=== PATIENT | male | born 1955 | race Caucasian/White ===

== ENCOUNTER 2024-02-24 08:48 | Outpatient (REF) | payer MEDICARE, SELFPAY ==
--- NOTE | ~2024-02-24 | XR_ITS ---
EXAMINATION: XR LUMBOSACRAL SPINE WITH OBLIQUES CLINICAL INFORMATION: Spondylolisthesis lumbar region. COMPARISON: None available. TECHNIQUE: AP, lateral neutral, flexion and extension views of the lumbar spine. FINDINGS: Levoscoliosis of the lumbar spine. Degenerative changes with sclerosis in the bilateral sacroiliac joints. Bones are diffusely demineralized. Advanced multilevel lumbar spondylosis with moderate to marked loss of disc space height most notable at L2-L3 and L4-L5 and L5-S1. Grade 1 anterolisthesis of L4 on L5 persists on flexion and extension views. Straightening of the normal lumbar lordosis. Minimal grade 1 retrolisthesis of L2 on L3. XR/XR lumbar spine 4V min IMPRESSION: Advanced multilevel lumbar spondylosis.
== END 2024-02-24 08:49 | disposition home or self-care (01) ==
LOC: HO.HOSX 08:48
PROVIDERS: PCP Nurse Practitioner Family; Visit Provider Physician Assistant
DX: M43.16 Spondylolisthesis, lumbar region (principal)
CPT/HCPCS: 72110; 99202

== ENCOUNTER 2024-02-24 08:48 | Outpatient (AMB) | payer MEDICARE, SELFPAY ==
--- NOTE | 2024-02-24 09:01 | HO.SPINEOV ---
Intake Visit Reasons: LBP Intake Note: Mr. Flores is here today c/o low back pain. 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 He is a very nice 68-year-old gentleman who presents to the office today for evaluation of bilateral low back pain, radiating down into his anterior thigh stopping at his knees. The symptoms started a few years ago, maybe 2 or 3 years. It has been getting progressively worse. It is associated with standing and walking and goes away if he sits down. He initially started with activity modifications such as avoiding long walks or places where we knew he would have to stand. He started using a shopping cart in the grocery store etc.. It progressed to where he went underwent physical therapy thinking maybe he can just tried to work it out, ultimately went underwent months of treatment and improve his flexibility but otherwise the symptoms does not go away. He tried Tylenol, anti-inflammatories, Celebrex etc.. Nothing seems to work. An MRI was done at [facility] in July of 2023 showing severe arthritis the lumbar spine with stenosis, spondylolisthesis and he was sent to us for evaluation prior to considering injections. PMH: He has a history of CAD and has stent in 2019, he is followed by at [facility]. He tells me he gets yearly checkups and he has been otherwise fine. History of hypertension. He has seasonal allergies. He has high cholesterol. Denies any problems with his lungs, liver, kidneys, bleeding disorders, blood clots, cancer etc.. Social hx: He does not smoke, he drinks a beer 2 a day, no recreational drugs Medications: Metoprolol, atorvastatin, Effexor, baby aspirin and nifedipine Allergies: None Physical exam: He stands and walks with a flexed posture, he has some mild iliopsoas weakness but otherwise strength in the upper and lower extremities is full. Reflexes 3+ and symmetric throughout the upper and lower extremities. Imaging review: Lumbar MRI done at [facility] in July 2023 shows severe arthritis throughout the whole lumbar spine. It should be noted that he has transitional anatomy. We are considering the level with the spondylolisthesis the L4-5 level. He has grade 1 spondylolisthesis at L4-5 with bilateral neuroforaminal stenosis which we would rate as severe. He has moderate stenosis at L2-3. Standing flexion-extension x-rays show that it looks as though he has what appears to be a pars defect at L4, likely contributing to his spondylolisthesis. He has severe osteophyte overgrowth at L2-3 laterally on the right. Impression: 68-year-old gentleman presents to the office today for progressive history of bilateral low back pain radiating into his anterior thigh stopping at his knees. It seems most consistent with the L4 dermatome where we see a grade 1 spondylolisthesis/pars defect with narrowing in the foramen.. However, there can be some overlap with the L2-3 dermatome as well where he has moderate central canal stenosis. Dr. Fritz and I reviewed his films together in the office today. Although he has extensive degenerative changes, we think the L4-5 spondylolisthesis is likely generating most of his symptoms. We discussed the option of an L4-5 trans Kambin interbody fusion. We left the option open that he may need a secondary follow-up surgery at L2-3 with a simple decompression as well but this can be dealt with later after surgery if he does not have good resolution of his leg symptoms. He will need a preoperative cardiac clearance and be off his aspirin 1 week prior to surgery. Pt was given risk and benefits of surgery including but not limited to infection, hematoma , nerve injury,durotomy, weakness,bowel/bladder injury, persistent pain, need for subsequent decompression at L2-3 as well as the option to continue with conservative treatment and patient wishes to proceed with surgery. Pt is aware they should stop their motrin, aspirin 7 days prior to surgery. All questions were answered to the best of our ability. If there is anything about this patients medical history that we have overlooked or concerns you have about us proceeding with surgery we would appreciate any input you can offer. Thank you for allowing us to care for your patient. The total time spent with this visit with this patient was 45 minutes reviewing history, physical exam, lumbar imaging review, and implementation of treatment plan or further diagnostic testing Judson Fritz MD,PhD [facility] Orders: Orders XR lumbar spine 4V min Today M43.16 - Spondylolisthesis, lumbar region Coding Level of Care Code New Pt Level 4 (67654) Diagnoses Spondylolisthesis, lumbar region M43.16
== END 2024-02-24 09:54 | disposition home or self-care (01) ==
PROVIDERS: PCP Nurse Practitioner Family; Referring Provider Physical Medicine & Rehabilitation; Visit Provider Physician Assistant
DX: M43.16 Spondylolisthesis, lumbar region (principal)
CPT/HCPCS: 99204

== ENCOUNTER 2024-05-08 09:06 | Inpatient (IN) | payer MEDICARE, SELFPAY ==
[2024-04-25 11:55] VITALS: BP 157/80; PULSE 87; RESP 16; O2SAT 97; BMI 31.2
--- NOTE | 2024-04-25 12:24 | HO.ANESPROP2 ---
Documented by User: Sana Chand NP 05/07/24 09:11 HPI - Anesthesia Eval Consult details Narrative: 68yo M for L4-5 Transkambin Lumbar Interbody Fusion, 05/08/24 Cardiac optimized No recent illness, Seasonal allergy (zyrtec) No CP/SOB, mild LONG r/t back pain CAD s/p stent x 2018 GERD: prn Tums Anxious PMFSH Active Problems Active Problems: All Active Problems Spondylolisthesis, lumbar region (Acute) Past Medical History Medical History Environmental allergies Hx of sinusitis Allergic rhinitis GERD (gastroesophageal reflux disease) Atypical chest pain CAD (coronary artery disease) History of panic attacks Depression Anxiety Low back pain Seasonal allergies Elevated cholesterol HTN (hypertension) Family History Family history of problems with anesthesia: No Surgical History Surgical History Hx of colonoscopy H/O heart artery stent (~02/2019) History of Problems with Anesthesia: No Social History Social History Household Members: None Housing: Apartment Are you a primary healthcare administration internship to a significant other at home: No Do you presently have visiting nurse or other home services: No Patient Tobacco Use Status: Never used Tobacco Use of substances other than those prescribed or required for medical reasons: No Have you been hit, kicked, punched, or otherwise hurt by someone within the past year? If so, by whom?: No Are you DNR?: No Advance Directives: No Advance Directives on File: No Recently lost weight without trying: No Nutrition Risks: No Nutritional Risk Poor oral hygiene: No Meds Allergies Allergy/AdvReac Type Severity Reaction Status Date / Time No Known Allergies Allergy Verified 04/24/24 12:10 Home Medications ?Medication ?Instructions ?Recorded ?Confirmed ?Last Taken ?Type aspirin 81 mg chewable tablet 81 mg PO DAILY 04/24/24 04/24/24 05/04/24 History atorvastatin 80 mg tablet 80 mg PO DAILY 04/24/24 04/24/24 05/07/24 History cetirizine 10 mg capsule (Zyrtec) 10 mg PO DAILY PRN Allergy Symptoms 04/24/24 04/24/24 05/08/24 History fluticasone propionate 50 1 spray intranasal DAILY PRN 04/24/24 04/24/24 05/08/24 History mcg/actuation nasal Allergy Symptoms spray,suspension (Flonase Allergy Relief) lisinopril 20 mg tablet 20 mg PO DAILY 04/24/24 04/24/24 05/07/24 History metoprolol succinate 50 mg 100 mg PO DAILY 04/24/24 04/24/24 05/08/24 History tablet,extended release 24 hr omega 1-hnt-ztc-fish oil 1,200 mg 1 cap PO DAILY 04/24/24 04/24/24 05/04/24 History (144 mg-216 mg) capsule (Fish Oil) pregabalin 75 mg capsule 75 mg PO BID 04/24/24 04/24/24 05/08/24 History turmeric 400 mg capsule 400 mg PO DAILY 04/24/24 04/24/24 05/04/24 History venlafaxine 37.5 mg 37.5 mg PO DAILY 04/24/24 04/24/24 05/08/24 History capsule,extended release 24 hr venlafaxine 75 mg capsule,extended 75 mg PO DAILY 04/24/24 04/24/24 05/08/24 History release 24 hr Tums 1 PO BID PRN Gastric Reflux 04/25/24 04/30/24 History acetaminophen 500 mg tablet 1,000 mg PO QID PRN Pain 04/25/24 04/25/24 Unknown History hydroxyzine HCl 25 mg tablet 25 mg PO DAILY PRN anxiety 04/25/24 04/25/24 05/08/24 History nifedipine 30 mg tablet,extended 30 mg PO DAILY 04/25/24 04/25/24 05/08/24 History release Exam Height,Weight and Vital Signs: Height 6 ft Weight 104.326 kg Last Vital Signs Pulse 87 04/25/24 11:55 Resp 16 04/25/24 11:55 BP 157/80 H 04/25/24 11:55 Pulse Ox 97 04/25/24 11:55 O2 Del Method Room Air 04/25/24 11:55 Pertinent Lab Results Pertinent Lab Results: Lab Results 04/25/24 04/25/24 Range/Units 12:51 13:00 WBC 8.3 (4.8-10.8) X10*3/uL RBC 5.08 (4.60-5.80) X10*6/uL Hgb 16.4 (14.0-18.0) g/dl Hct 46.8 (42.0-52.0) % MCV 92.1 (80.0-98.0) fL MCH 32.3 (27.0-33.0) pg MCHC 35.0 (31.0-36.0) g/dl RDW 12.4 (11.0-16.0) % Plt Count 273 (160-400) X10*3/uL MPV 10.0 (9.4-12.4) fL Absolute Nucleated RBC 0.000 (0.0-0.012) X10*3/uL Nucleated RBC % (auto) 0.0 (0.0-0.2) /100WBC Sodium 137 (135-145) mmol/L Potassium 4.8 (3.3-5.1) mmol/L Chloride 103 (96-108) mmol/L Carbon Dioxide 25 (22-29) mmol/L Anion Gap 14 (12-20) BUN 16 (9-16) mg/dL Creatinine 1.13 (0.5-1.4) mg/dL Estim Creat Clear Calc 80.3 Estimated GFR > 60 Random Glucose 103 (60-115) mg/dL Calcium 10.1 (8.4-10.2) mg/dL Blood Type AB Positive Antibody Screen NEGATIVE Narrative Narrative: Per cardiac note: EKG: NSR @ 68 ECHO 09/2023 Mild conc LVH, nml cavity size and sys function, nml regional wall motion with EF 60-65%, Nml RV size and sys function, no hemodynamically signif valve disease Airway Mallampati Class: II TM Dist: >3cm Loose/Missing/Broken Teeth: Yes (Molars pulled) Heart: RRR + murmur (benign per echo) Lungs: CTAB Assessment and Plan Assessment Anesthesia Assessment: Anesthesia Plan Discussed and PAT Visit Final Anesthetic Review Family History of Problems with Anesthesia: No History of Problems with Anesthesia: No Documented by User: Fabian Gonzalez MD 05/08/24 14:41 PMFSH Past Medical History Medical History Environmental allergies Hx of sinusitis Allergic rhinitis GERD (gastroesophageal reflux disease) Atypical chest pain CAD (coronary artery disease) History of panic attacks Depression Anxiety Low back pain Seasonal allergies Elevated cholesterol HTN (hypertension) Surgical History Surgical History Hx of colonoscopy H/O heart artery stent (~02/2019) Social History Social History Household Members: None Housing: Apartment Are you a primary healthcare administration internship to a significant other at home: No Do you presently have visiting nurse or other home services: No Patient Tobacco Use Status: Never used Tobacco Use of substances other than those prescribed or required for medical reasons: No Have you been hit, kicked, punched, or otherwise hurt by someone within the past year? If so, by whom?: No Are you DNR?: No Advance Directives: No Advance Directives on File: No Recently lost weight without trying: No Nutrition Risks: No Nutritional Risk Poor oral hygiene: No Meds Allergies Allergy/AdvReac Type Severity Reaction Status Date / Time No Known Allergies Allergy Verified 04/24/24 12:10 Home Medications ?Medication ?Instructions ?Recorded ?Confirmed ?Last Taken ?Type aspirin 81 mg chewable tablet 81 mg PO DAILY 04/24/24 04/24/24 05/04/24 History atorvastatin 80 mg tablet 80 mg PO DAILY 04/24/24 04/24/24 05/07/24 History cetirizine 10 mg capsule (Zyrtec) 10 mg PO DAILY PRN Allergy Symptoms 04/24/24 04/24/24 05/08/24 History fluticasone propionate 50 1 spray intranasal DAILY PRN 04/24/24 04/24/24 05/08/24 History mcg/actuation nasal Allergy Symptoms spray,suspension (Flonase Allergy Relief) lisinopril 20 mg tablet 20 mg PO DAILY 04/24/24 04/24/24 05/07/24 History metoprolol succinate 50 mg 100 mg PO DAILY 04/24/24 04/24/24 05/08/24 History tablet,extended release 24 hr omega 3-txs-kxr-fish oil 1,200 mg 1 cap PO DAILY 04/24/24 04/24/24 05/04/24 History (144 mg-216 mg) capsule (Fish Oil) pregabalin 75 mg capsule 75 mg PO BID 04/24/24 04/24/24 05/08/24 History turmeric 400 mg capsule 400 mg PO DAILY 04/24/24 04/24/24 05/04/24 History venlafaxine 37.5 mg 37.5 mg PO DAILY 04/24/24 04/24/24 05/08/24 History capsule,extended release 24 hr venlafaxine 75 mg capsule,extended 75 mg PO DAILY 04/24/24 04/24/24 05/08/24 History release 24 hr Tums 1 PO BID PRN Gastric Reflux 04/25/24 04/30/24 History acetaminophen 500 mg tablet 1,000 mg PO QID PRN Pain 04/25/24 04/25/24 Unknown History hydroxyzine HCl 25 mg tablet 25 mg PO DAILY PRN anxiety 04/25/24 04/25/24 05/08/24 History nifedipine 30 mg tablet,extended 30 mg PO DAILY 04/25/24 04/25/24 05/08/24 History release Exam Airway Loose/Missing/Broken Teeth: Yes (Molars pulled, chipped incisor) Assessment and Plan Final Anesthetic Review NPO: Yes ASA Class: III Final Preanesthetic Review: No Changes in Pt Med Stat, Meds/Allgs Chart Reviewed, Consent Obtained/Reviewed and Anes Risks/Benef Reviewed Patient Risk: Intermediate Procedure Risk: Low Anesthetic Plan Anesthetic Plan: GA Disposition: Standard PACU
[2024-04-25 13:52] LABS: Hematocrit 46.8 % (42.0-52.0); Hemoglobin 16.4 g/dl (14.0-18.0); Mean Corpuscular Hemoglobin 32.3 pg (27.0-33.0); Mean Corpuscular Volume 92.1 fL (80.0-98.0); Platelet Count 273 X10*3/uL (160-400); Red Blood Count 5.08 X10*6/uL (4.60-5.80); Red Cell Distribution Width 12.4 % (11.0-16.0); White Blood Count 8.3 X10*3/uL (4.8-10.8)
[2024-04-25 14:40] LABS: Anion Gap 14 (12-20); Blood Urea Nitrogen 16 mg/dL (9-16); Calcium 10.1 mg/dL (8.4-10.2); Carbon Dioxide 25 mmol/L (22-29); Chloride 103 mmol/L (96-108); Creatinine Clr Calc Pharmacy 80.3; Estimated Glomerular Filt Rate > 60; Glucose Random 103 mg/dL (60-115); Potassium 4.8 mmol/L (3.3-5.1); Sodium 137 mmol/L (135-145)
[2024-05-08] VITALS (10 sets, daily range): BP systolic 96–131; BP diastolic 44–77; PULSE 60–83; RESP 14–18; TEMP 36.3–36.6; O2SAT 95–100
--- NOTE | ~2024-05-08 | FL_ITS ---
EXAMINATION: XR FLUOROSCOPY WITH IMAGES CLINICAL INFORMATION: L4-L5 Transkambin lumbar interbody fusion. COMPARISON: None available. TECHNIQUE: Fluoroscopy Supervised By: Dr. Fritz. Fluoroscopy Time: 82 sec. Cumulative Dose: 86.823 mGy. DAP: 28.787 Gycm2. Images: 2. FINDINGS: Intraoperative fluoroscopy and spot films were performed during a procedure in the OR. Imaging demonstrates placement of posterior pedicular screws and interbody devices at L4-L5. Please correlate with Dr. Fritz' report for complete details. FL/FL guidance in OR IMPRESSION: Intraoperative fluoroscopy and spot films were obtained. Please see Dr. Fritz' report for complete details.
[2024-05-08] MEDS: methocarbamoL 750 MG TABLET PO (09:26)
[2024-05-08] MEDS: Gabapentin 300 MG CAPSULE PO (09:26)
[2024-05-08] MEDS: Lactated Ringers 1,000 ML 100 ML IVCONT (09:28)
--- NOTE | 2024-05-08 09:36 | PC.NURSE ---
pt drinks daily 2 beers had one yesterday
--- NOTE | 2024-05-08 12:46 | MHC.SHP ---
Pre-Procedural Eval Section A - 24 Hr Update-Section A only Date of Service: 05/08/24 Section B - Complete if H&P > 30 days Chief Complaint: S/P L4-5 transkambin Allergies: Allergies Allergy/AdvReac Type Severity Reaction Status Date / Time No Known Allergies Allergy Verified 04/24/24 12:10 Review of Systems Sugical H&P ROS: Negative: Constitution, Cardiovascular, Respiratory, Neurological, Psychiatric, Hem-Onc, Allergic/Immunologic, Gastrointestinal, Genitourinary, Musculoskeletal, Integumentary, Endocrine and Eyes/Ears/Nose/Throat Exam Surgical H&P Exam: Not Evaluated: HEENT, Not Evaluated: Heart, Not Evaluated: Lungs, Not Evaluated: Extremities, Not Evaluated: Abdomen, Not Evaluated: Skin and Not Evaluated: Neurological Exam Comment: Patient is A&OX4. His abdomen if soft, nontender. His proposed incision sites are clear without scarring or rash. Plan Diagnosis/Plan: Unchanged I have reviewed the history and physical and performed a pertinent physical examination on my patient. No changes have occurred unless specified. Plan remains the same, L4-5 Transkambin Time Spent With Patient Time: Total time managing care of this patient today ___15_ minutes.
--- NOTE | 2024-05-08 15:20 | P.OP_ITS ---
Operative Note Operative Note Date of Service: 05/08/24 Narrative: Preoperative diagnosis: 1) L4-5 spondylolisthesis and bilateral thigh pain Postprocedure diagnosis: 1) same as above Procedure: 1) L4-5 oblique lateral lumbar interbody fusion with discectomy, preparation of the endplates and placement of a titanium bullet cage packed with allograft, anterior to the transverse process in modified prone position, with intraoperative biplanar fluoroscopy imaging and electrophysiological monitoring 2) L4-5 posterior minimally invasive pedicle screw placement and posterior lateral instrumentation and fusion with intraoperative biplanar fluoroscopic imaging and electrophysiological monitoring 3 injection of 10 cc of Exparel at the L4 transverse process for a muscular erector spinae block and additional Exparel in paravertebral tissue for postop management Consent Informed Consent was obtained for this operation. I have explained the nature, purpose and benefits of the operation. I have discussed the risks and benefit of the operation including possible complications or adverse events with patient/family. Alternative(s) were discussed with the patient with their relative benefits and risks as well as the consequences of not accepting the operation were included in obtaining consent. Surgeon: NOEL MIRANDA MD, PHD Procedure Assisted By: DEEPAK Khan Description of Procedure: This is a complex surgery on the lumbar spine and an assistant branch operations manager as needed for s afety of the surgery for setup of instrumentation, retraction and closing. History: This 68-year-old male suffering from bilateral leg pain. His imaging is complex associated degenerative scoliosis: L4-5 spondylolisthesis with severe bilateral L5 foraminal stenosis and L2-3 stenosis. Clinically his symptoms are most compatible with an L4 radiculopathy and therefore we offered him an indirect decompression of his nerve roots through an oblique lateral lumbar interbody fusion. The procedure and complications were explained and the patient was consented. Procedure: The patient was brought to the operating room and endotracheally intubated. The patient was positioned on the Jan spine table in a modified prone position for ease of access from the right side.. 2C arms were installed for fluoroscopy. Prepping and draping was done followed by timeout. The landmarks, including spinal processes, transverse processes, disc space, endplates and pedicles are identified and marked. The following steps are taken for each specified level: L4-5 level: Cage size 10 mm high and 33 mm long titanium . The patient was turned using the rotation of the surgical table so a near direct anterior lateral approach to the lumbar spine could be achieved. A small incision was then made superior to the mid iliac crest and then using biplanar fluoroscopy visualization, under electrophysiological monitoring and stimulation, we introduced an electrophysiological probe through the retroperitoneal space into the desired disc anterior to the transverse process and then passed it into the disc space after finding a silent window. The sleeve was retained and the probe was removed, then the K wire was passed sequentially into the disc space. A dilating tube was then passed along the same route. Following this, a working channel, a working channel was then passed sequentially into the disc space. The working channel was manually held in position while a series of disc cleaning tools were passed through the channel to remove the affected disc under clear and direct biplanar fluoroscopic visualization, decompress the nerve roots and equal corticated vertebral endplates at this segment. Arthrodesis of the intervertebral space via an anterior retroperitoneal exposure was achieved through Kambin's [place] and lateral extraforaminal space. Allograft was added into the anterior disc space. The working channel was then removed. A titanium interbody cage tightly packed with allograft was then inserted into the midportion of the intervertebral disc space over a K-wire under biplanar fluoroscopic visualization and intraoperative neuro monitoring. The inter pedicular and intradiscal space was significantly enlarged and disc height was restored to worked normal anatomy there for releasing pressure on the nerve roots visual largely the spinal canal and lateral recess as well as foramen were bilateral decompressed and all bones were confined to the borders of the disc space . The following steps are then taken for each specified level: L4-5 level: Bilateral L4 and L5 screws with a diameter of 6.5 x 45 mm. The posterolateral fusion is initiated after the patient is rotated to a true prone position. The entry point to the pedicle is identified in the AP and lateral views and then the skin incision is injected with local anesthetic. We entered the pedicle with the pediguard tap after which a K-wire was introduced into the vertebral body. Additionally, I used a small periosteal decorticator along the screws to refresh the surface of the bone and facet and I put some amount of allograft for additional stability for the posterolateral fusion. Over the K-wire we insert pedicle screws bilaterally. After the screws were placed, we put the alban in place and under fluoroscopic imaging, we locked the alban in place and removed the screw tops and then each incision has been closed with 0 Vicryl for the fascia and a 3-0 Vicryl for the subdermal layer. Steri-S trips were used to approximate the incisions. An OpSite with Tegaderm was used to cover the incision. Final x-rays and AP and lateral projection showed good position of the interbody device and instrumentation. All sponge and needle counts were correct. The patient was extubated and transported in a stable condition to the recovery room. 2-0 Vicryl This procedure was done with the aid of a physician assistant branch operations manager as a qualified resident was not available. Anesthesia: General Estimated Blood Loss (ml): 10 mL Specimen: None Duration of Surgery: 45 minutes Postoperative Plan: Admit to inpatient
[2024-05-08] MEDS: HYDROmorphone HCl 0.5 MG/0.5 ML SYRINGE 0.25 MG IVPUSH ×2 (16:20→16:25)
[2024-05-08] MEDS: 0.9 % Sodium Chloride 1,000 ML 75 ML IVCONT (17:41)
[2024-05-08] MEDS: Ketorolac Tromethamine 15 MG/ML VIAL IVPUSH (17:41)
--- NOTE | 2024-05-08 19:16 | PHA.MEDREC ---
Pharmacy Consult ? Medication Reconciliation Pharmacy has completed the medication reconciliation. Confirmed medications with patient. Patient states he was taking Aspirin 81mg tab, Wittmann 3 fish oil cap and a Tumeric tablet but his doctor told him Tuesday05/04/24 to stop those for surgery and to continue them after.He took his medicine this AM.
[2024-05-08] MEDS: ceFAZolin Sodium/Dextrose,Iso 2 GM/50 ML PIGGYBACK IV (19:44)
[2024-05-08] MEDS: Acetaminophen 325 MG TABLET 650 MG PO (19:44)
[2024-05-08] MEDS: Docusate Sodium 100 MG CAPSULE PO (19:44)
[2024-05-08] MEDS: Pregabalin 75 MG CAPSULE PO (20:09)
[2024-05-08] MEDS: HYDROmorphone HCl 1 MG/ML SYRINGE IVPUSH (23:31)
[2024-05-09 00:15] VITALS: BP 109/65; PULSE 65; RESP 16; TEMP 36.2; O2SAT 93
[2024-05-09] MEDS: Ketorolac Tromethamine 15 MG/ML VIAL IVPUSH ×2 (01:11→10:21)
--- NOTE | 2024-05-09 03:14 | PC.NURSE ---
Pt AOx3, able to make needs known. Surgical dsg on lower back CDI. Pt had a difficult time getting comfortable in bed, asked to sleep in recliner. Discussed safety measures w/pt, he verbalized understanding. Call vines within reach. Safety maintained throughout shift.
[2024-05-09 04:00] VITALS: BP 127/67; PULSE 70; RESP 16; TEMP 36.2; O2SAT 95
[2024-05-09] MEDS: Acetaminophen 325 MG TABLET 650 MG PO (05:19)
--- NOTE | 2024-05-09 06:55 | PM.DS ---
DS: Providers Provider Date of Service: 05/09/24 Date of admission: 05/08/24 09:06 Primary care physician: Jayesh Harris MD DS: Summary Time Attestation Discharge Coordination Time (in mins): 15 Quality: Safe Use of Opioids Does Pt have an Active Cancer Diagnosis on the Problem List?: No Quality: Stroke Does the patient have a stroke diagnosis?: No Physical Exam Vital Signs: Vital Signs: Last Vital Signs Temp 97.1 F 05/09/24 04:00 Pulse 70 05/09/24 04:00 Resp 16 05/09/24 04:00 BP 127/67 05/09/24 04:00 Pulse Ox 95 05/09/24 04:00 O2 Del Method Room Air 05/09/24 04:00 O2 Flow Rate 2 05/08/24 16:30 BMI result Body Mass Index 31.2 Discharge Plan Discharge Anticipated Discharge Date/Time: 05/09/24 06:56 Patient Disposition: Home, Self-Care Discharge Diagnosis: s/p L4-5 Lumbar fusion Referrals: Jayesh Harris MD [Primary Care Provider] - 1 Week Discharge Medications: New cyclobenzaprine 5 mg tablet 5 mg PO TID Qty: 30 0RF oxycodone 5 mg tablet 5 mg PO Q6H PRN (Reason: severe pain (scale score 7-10)) Qty: 30 0RF Rx Instructions: Partial Fill upon patient request. Continued atorvastatin 80 mg tablet 80 mg PO DAILY venlafaxine 37.5 mg capsule,extended release 24hr 37.5 mg PO DAILY Rx Instructions: TAKE 1 CAPSULE BY MOUTH ONCE A DAY WITH 75 MG CAPSULE FOR TOTAL DOSE = 112.5 MG venlafaxine 75 mg capsule,extended release 24hr 75 mg PO DAILY Rx Instructions: TAKE 1 CAPSULE BY MOUTH ONCE A DAY WITH 37.5 MG CAPSULE FOR TOTAL DOSE = 112.5 MG metoprolol succinate 50 mg tablet extended release 24 hr 100 mg PO DAILY lisinopril 20 mg tablet 20 mg PO DAILY pregabalin 75 mg capsule 75 mg PO BID fluticasone propionate [Flonase Allergy Relief] 50 mcg/actuation [place],Suspension 1 spray INTRANASAL DAILY PRN (Reason: Allergy Symptoms) Rx Instructions: administer into each nostril Zyrtec 10 mg Capsule 10 mg PO DAILY PRN (Reason: Allergy Symptoms) turmeric 400 mg Capsule 400 mg PO DAILY hydroxyzine HCl 25 mg tablet 25 mg PO DAILY PRN (Reason: anxiety) nifedipine 30 mg tablet extended release 30 mg PO DAILY acetaminophen 500 mg Tablet 1,000 mg PO QID PRN (Reason: Pain) Held aspirin 81 mg Tablet,Chewable 81 mg PO DAILY Hold Instructions: Resume on 05/12/24. omega 5-[id number]-fish oil [Fish Oil] 1,200 (144-216) mg Capsule 1 cap PO DAILY Hold Instructions: Resume on 06/09/24. Discharge Orders: Discharge Order (Routine); Ordered 05/09/24 Ordered By: Kye Meyer Diet: Advance to usual diet Activity on Discharge: As tolerated Stand Alone Forms: Patient Portal Discharge page Print Language: Syriac Activity Restrictions/Additional Instructions: After your spinal surgery we ask you to observe the following restrictions/guidelines: Activity: With lumbar fusion surgery it is normal to have days in the first couple of weeks where you have increased leg pain. This usually lasts 1-2 days and self resolves with the continuation of medication. Attempt to stay mobile and continue activity as tolerated. It is normal to feel some discomfort as you increase your activity, but that will improve with time. We ask you avoid heavy lifting or activities that cause pain. As a general rule, 8lbs is a safe limit for lifting right after surgery. Walk as much as you feel comfortable but not to exhaustion. You will feel extra tired the first few days after surgery. Stay well hydrated. It is OK to walk up and down stairs You may return to driving when you are off narcotics (such as vicodin, oxycodone, dilaudid, etc), and you are back to normal functional capacity. If you have any concerns please check with office before driving. Return to work is specific to each patient and each surgery, so please speak with your doctor/PA at first follow up. Please bring paperwork such as FMLA at that time if you need it filled out. Medications: It is recommended that you take Tylenol 500 mg every 4 hours for the 1st week postoperatively (don't exceed 4,000mg Tylenol in 24 hours),?alongside ibuprofen 600 mg every 8 hours. It is recommended you continue Lyrica for nerve pain and Hydroxyzine for nerve pain. We will be prescribing cyclobenzaprine (a muscle relaxer) as well. We will give you a short supply of narcotics after surgery (usually one weeks worth). ??Please use this for breakthrough pain that is refractory to the Tylenol, ibuprofen, muscle relaxer, hydroxyzine, and gabapentin. If you need more please call the office but do not use more than prescribed. You will need to give our office 48 hours notice if you need narcotics refilled and we do not fill narcotics on weekends or evenings. If you are on a narcotic, it is a good idea to take a stool softener such as colace or senna to avoid constipation If you take blood thinner such as aspirin, Plavix, Coumadin, Effient, Eliquis etc for conditions such as Afib, DVT, Pulmonary embolus, coronary disease, stents etc please speak with your surgeon about specific details as to when you can resume these medications. You can resume NSAIDs on post op day 1 (eg: Motrin, Naproxen, etc). Follow up: Please call the office, , after surgery to arrange a 3 week follow up for wound check. Wound Care: You may remove your dressing on the first day after surgery. ?You may ?leave open to air. Please do not remove the steri strips underneath. they will fall off on their own in one week. IT IS NORMAL FOR THE WOUND TO OOZE OR BE BLOODY FOR A FEW DAYS AFTER SURGERY. ?IF THIS HAPPENS JUST PLACE NEW DRESSING OVER IT TO AVOID STAINING CLOTHES. You may shower on post op day # 1 We ask that you do not let the water soak the wound. If it does get wet, just towel dry lightly. Please do not scrub your incision or place any type of chemical/ointment on the wound. No tub baths, pools or jacuzzis for one month. If you have any leaking or redness from your wound, or fevers, please call office Care Plan Goals: Returned to normal activity as tolerated Health Concerns: None Plan of Treatment: Follow-up in clinic in 2-3 weeks Assessment: POD: 1 Procedure: L4-5 Transkambin lumbar fusion David was seen this morning sitting upright in bed on 3 [address]. He reports he is up walking around & is otherwise doing well. He feels his symptoms are much better than pre-operatively. He still reports mild pain in his low back, with good relief with pain medication. He is voiding well, oob to the bathroom, tolerating diet. Afebrile, vital signs stable. Full strength bilateral LE's. Back dressings have some staining without signs of hematoma. No active sanguineous drainage. Area is dry. Plan: Patient meets criteria to be medically discharged home. He was seen at bedside with Dr. Fritz. I sent in oxycodone 5mg and a muscle relaxer to his pharmacy. He should take these and continue his Hydroxyzine and Lyrica.
[2024-05-09 07:36] VITALS: BP 140/77; PULSE 74; RESP 16; TEMP 36.6; O2SAT 95
[2024-05-09] MEDS: oxyCODONE HCl Immed Release 5 MG TABLET PO (07:57)
[2024-05-09] MEDS: Metoprolol Succinate ER 100 MG TAB.ER.24H PO (07:57)
[2024-05-09] MEDS: lisinopriL 20 MG TABLET PO (07:57)
[2024-05-09] MEDS: Docusate Sodium 100 MG CAPSULE PO (07:57)
[2024-05-09] MEDS: Atorvastatin Calcium 80 MG TABLET PO (07:57)
[2024-05-09] MEDS: Venlafaxine HCl ER 75 MG CAP.ER.24H PO (07:57)
[2024-05-09] MEDS: Pregabalin 75 MG CAPSULE PO (07:57)
[2024-05-09] MEDS: NIFEdipine ER 30 MG TAB.ER.24 PO (07:57)
[2024-05-09] MEDS: Venlafaxine HCl ER 37.5 MG CAP.ER.24H PO (07:57)
--- NOTE | 2024-05-09 08:58 | MHC.CM.PN ---
IMM delivered. Patient lives in an apartment alone. Functionally independent. Denies use of DME or services. PCP Jayesh Harris MD Patient completed HCP naming [facility]'s 1) daughter Susanna and 2) sister Shannon. DP: Medically cleared for dc home self care. Daughter to transport at 10am.
--- NOTE | 2024-05-09 09:38 | HO.POSTANES ---
Post Anesthesia Evaluation Post Anesthesia Evaluation Date of Service: 05/09/24 Vital Signs: Vital Signs Temp Pulse Resp BP Pulse Ox O2 Del Method 05/09/24 07:36 97.9 F 74 16 140/77 H 95 05/09/24 04:00 97.1 F 70 16 127/67 95 Room Air 05/09/24 00:15 97.2 F 65 16 109/65 93 Room Air Anesthesia: General Endotracheal-GETA Mental Status: Awake Pain Control: Satisfactory Nausea/Vomiting: None Hydration: Adequate Anesthesia-Related Issues: No Anes. Related Issues
== END 2024-05-09 11:07 | disposition home or self-care (01) | DRG 460 ==
LOC: HO.SSSA 10:28 → HO.S3 16:39
PROVIDERS: Neurological Surgery; Nurse Practitioner; Admitting Provider Physician Assistant; PCP Internal Medicine; Visit Provider Physician Assistant
PROC: 0SG00A0 Fusion of Lumbar Vertebral Joint with Interbody Fusion Device, Anterior Approach, Anterior Column, Open Approach (ICD-10-PCS; principal; 2024-05-08 11:00)
DX: M43.16 Spondylolisthesis, lumbar region (principal); I25.10 Atherosclerotic heart disease of native coronary artery without angina pectoris; Z79.82 Long term (current) use of aspirin; Z79.899 Other long term (current) drug therapy
CPT/HCPCS: 36415; 80048; 85027; 86850; 86900; 86901; 97161; C1713; C1889; C9290; J0131; J0665; J0690; J1170; J1885; J2250; J2371; J2704; J3010; L8699

== ENCOUNTER → 2024-05-08 09:06 | Outpatient (BNV) | payer MEDICARE, SELFPAY | PROVIDERS: Admitting Provider Physician Assistant; PCP Internal Medicine; Visit Provider Neurological Surgery | DX: M43.16 Spondylolisthesis, lumbar region (principal) | CPT/HCPCS: 20930; 22558; 22612; 22840; 22853; 63056; 99499 ==

== ENCOUNTER 2024-05-31 08:42 | Outpatient (AMB) | payer MEDICARE, SELFPAY ==
--- NOTE | 2024-05-31 08:44 | HO.SPINEOV ---
Intake Visit Reasons: 1st post op Intake Note: Mr. Flores is here today for his 1st post-op visit. Applications Engineer Manufacturing Required: No Allergies No Known Allergies Allergy (Verified 05/31/24 09:02) Assessment & Plan Assessment & Plan (1) S/P spinal fusion: Code(s): Z98.1 - Arthrodesis status Category: Surgical Plan Procedure: L4-5 Transkambin Lumbar Fusion David comes in today for his 1st postoperative visit. To recap he was initially seen in clinic for bilateral low back pain, radiating down into his anterior thighs. He still reports some pain in his anterior thighs, but states it does feel somewhat better than before surgery. He also has quite a bit of discomfort upon awakening/rising from bed 1st thing in the morning. He typically utilizes ice in order to help resolve these symptoms and feels better after 10-15 minutes. We discussed the postoperative healing course, the likelihood of postoperative inflammation, and I answered all of his questions to the best of my ability. No new neurological deficits. Patient is able to ambulate well, rises from a seated position without difficulty. Incision sites are closed, well healing, with no signs of drainage. We will follow-up with the patient in 6 weeks for their 2nd postoperative visit. At that time we will get x-rays to review with the patient. Kye Fritz MD,PhD [facility] Coding Level of Care Code Global (66355) Diagnoses S/P spinal fusion Z98.1
== END 2024-05-31 09:22 | disposition home or self-care (01) ==
PROVIDERS: PCP Internal Medicine; Visit Provider Physician Assistant
DX: Z98.1 Arthrodesis status (principal)
CPT/HCPCS: 99024

== ENCOUNTER → 2024-05-31 08:42 | Outpatient (BNVA) | payer MEDICARE, SELFPAY | PROVIDERS: PCP Internal Medicine; Visit Provider Physician Assistant | DX: M54.50 Low back pain, unspecified (principal); Z47.89 Encounter for other orthopedic aftercare; Z98.1 Arthrodesis status | CPT/HCPCS: 99212 ==

== ENCOUNTER 2024-07-12 08:32 | Outpatient (REF) | payer MEDICARE, SELFPAY ==
--- NOTE | ~2024-07-12 | XR_ITS ---
EXAMINATION: XR LUMBOSACRAL SPINE WITH OBLIQUES CLINICAL INFORMATION: Arthrodesis status. COMPARISON: None available. TECHNIQUE: AP, lateral neutral, flexion and extension views of the lumbar spine. FINDINGS: Normal bony mineralization. No fracture, compression deformity, or suspicious focal bony abnormality. There is a mild levoconvex scoliosis, apex at L4. There is straightening of the normal lordosis. Dorsal instrumented fusion of L4-5 with transpedicular screws and posterior connecting rods. There is been intervening discectomy with placement of breath disc prosthesis. Hardware is intact and well seated without complication seen. There is a 3 mm retrolisthesis of L2 on L3, which remained static in flexion and extension. There is a 4 mm anterolisthesis of L4 on L5. This remained static in flexion and extension. No additional significant subluxation. Complete disc space loss noted L5-S1. Severe loss of disc space noted L2-3. Moderate loss noted at the other levels. Multilevel degenerative facet changes present. Soft tissues demonstrate no acute abnormalities. There is vascular calcification of the aorta and its branches. XR/XR lumbar spine 4V min IMPRESSION: 1. Advanced lumbar spondylosis without acute abnormality. 2. Intact posterior fusion and discectomy L4-5 without complication seen. 3. No evidence of instability on flexion and extension. Electronically signed by: Rishi Paige MD 09/18/2024 11:20 AM ASAEL
== END 2024-07-12 08:33 | disposition home or self-care (01) ==
LOC: HO.XRAY 08:32
PROVIDERS: Visit Provider Physician Assistant
DX: Z98.1 Arthrodesis status (principal)
CPT/HCPCS: 72110; 99212

== ENCOUNTER → 2024-07-12 08:42 | Outpatient (BNV) | payer MEDICARE, SELFPAY | PROVIDERS: Visit Provider Radiology Diagnostic Radiology | DX: M47.896 Other spondylosis, lumbar region (principal); M43.26 Fusion of spine, lumbar region | CPT/HCPCS: 72110 ==

== ENCOUNTER 2024-07-12 09:03 | Outpatient (AMB) | payer MEDICARE, SELFPAY ==
--- NOTE | 2024-07-12 09:18 | A.OFFVIS_ITS ---
Intake Visit Reasons: 2nd post op with xrays Intake Note: Pt here for his 2nd post op Xrays were done Release Of Information Clerk Required: No Allergies No Known Allergies Allergy (Verified 05/31/24 09:02) PFSH Medical History Environmental allergies Hx of sinusitis Allergic rhinitis GERD (gastroesophageal reflux disease) Atypical chest pain CAD (coronary artery disease) History of panic attacks Depression Anxiety Low back pain Seasonal allergies Elevated cholesterol HTN (hypertension) Surgical History Hx of colonoscopy H/O heart artery stent (~02/2019) Social History Household Members: None Housing: Apartment Are you a primary field care coordinator to a significant other at home: No Do you presently have visiting nurse or other home services: No Patient Tobacco Use Status: Never used Tobacco service: No Assessment & Plan Assessment & Plan (1) S/P spinal fusion: Code(s): Z98.1 - Arthrodesis status Category: Medical Plan Procedure: L4-5 TKLIF David comes in today for his 2nd postoperative visit. To recap he was initially seen in clinic for bilateral low back pain, radiating down into his anterior thighs. At his 1st postoperative visit he was reporting some resolution of his symptoms, but states unfortunately the pain has returned completely. He is concerned that the surgery may not have been successful. It is difficult to assess whether this is related to deconditioning or continued pathology in his low back. His x-ray imaging shows no obvious changes from fluoroscopy however the images from today are of relatively low quality. No new neurological deficits. Patient is able to ambulate, but does hunch over slightly an expresses difficulty with walking. Incision sites are closed, well healed with no signs of drainage. I would like to send David for a CT scan in his lumbar spine to evaluate for exact placement of instrumentation, specifically focusing on his interbody cage placement in the surrounding osseous structure. He would like to follow up with DEEPAK Maradiaga thereafter to discuss possible subsequent surgical interventions, which he reports they had discussed at his initial visit. Kye Fritz MD,PhD [facility] Orders: Orders XR lumbar spine 4V min Today Z98.1 - Arthrodesis status CT lumbar spine wo IV con Today Z98.1 - Arthrodesis status Coding Level of Care Code Global (20801) Diagnoses S/P spinal fusion Z98.1
== END 2024-07-12 09:30 | disposition home or self-care (01) ==
PROVIDERS: PCP Internal Medicine; Visit Provider Physician Assistant
DX: Z98.1 Arthrodesis status (principal)
CPT/HCPCS: 99024

== ENCOUNTER 2024-07-13 09:37 | Outpatient (REF) | payer MEDICARE, SELFPAY ==
--- NOTE | ~2024-07-13 | CT_ITS ---
EXAMINATION: CT LUMBAR SPINE WITHOUT CONTRAST CLINICAL INFORMATION: Arthrodesis status, evaluate for exact instrumentation placement due to patients continued symptoms despite surgery COMPARISON: Lumbar spine radiograph 02/24/2024 TECHNIQUE: Helical CT images were acquired through the lumbar spine without the use of intravenous contrast. Axial reconstructions were reviewed along with sagittal and coronal MPRs. This CT examination was performed using dose optimization techniques as appropriate, variously including the following: * Automated exposure control * Adjustment of mA and/or kV according to patient size (this includes techniques or standardized protocols for targeted exams where dose is matched to indication/reason for exam; i.e. extremities or head) Use of iterative reconstruction technique DLP: 895 mGy-cm FINDINGS: Bipedicular screws in L4-L5 properly positioned entirely within the pedicles with screw tips terminating within vertebral bodies. L4-L5 intervertebral disc spacer is positioned entirely within the disc space and does not extend beyond the disc space. No evidence of hardware failure. No periprosthetic fracture. There is persistent moderate to severe degenerative disc disease from L2 to S1. Grade 1 anterolisthesis of L4 on L5, as before. There is straightening of the normal lumbar lordosis. Mild left convexity lumbar scoliosis with apex at L3, as before. Diffuse osteopenia. Vertebral body heights are maintained. Mild left L5-S1 neural foraminal stenosis. Moderate to to severe right L2-L3 and L3-L4 neural foraminal stenosis. Posteriorly projecting disc osteophyte complex results in mild canal stenosis at L2-L3. There are multilevel prominent lateral osteophytes throughout the lumbar spine. Degenerative change in the right greater than left sacroiliac joints with vacuum disc phenomenon also noted. Paraspinal soft tissues and visualized abdomen is unremarkable. CT/CT lumbar spine wo IV con IMPRESSION: 1. L4-L5 pedicle screws and intervertebral disc spacer are properly positioned without evidence of hardware failure. No periprosthetic fracture. 2. Moderate to severe degenerative disc disease from L2 to S1, as before. 3. There is moderate to severe right L2-L3 and L3-L4 neural foraminal stenosis. 4. Mild left L5-S1 neural foraminal stenosis. Electronically signed by: Frances Craft DO 07/14/2024 01:17 PM EDT
== END 2024-07-13 09:38 | disposition home or self-care (01) ==
LOC: HO.CT 09:37
PROVIDERS: PCP Internal Medicine; Visit Provider Physician Assistant
DX: Z98.1 Arthrodesis status (principal)
CPT/HCPCS: 72131

== ENCOUNTER 2024-07-20 08:47 | Outpatient (AMB) | payer MEDICARE, SELFPAY ==
--- NOTE | 2024-07-20 08:48 | A.SPINEOV_ITS ---
Intake Visit Reasons: CT f/u possible sx discussion Intake Note: Mr. Flores is here today to Discuss surgery and F/u on the results of his CT Scan. Manager Web Application Required: No Allergies No Known Allergies Allergy (Verified 07/20/24 08:59) Assessment & Plan Assessment & Plan (1) S/P spinal fusion: Code(s): Z98.1 - Arthrodesis status Category: Medical Plan Mr Flores is follow-up after his previous visit with Kye GAINES. He underwent an L4-5 trans Kambin interbody fusion. He tells me that he had relief of the symptoms that were radiating down the front of his legs and the feeling of his knee giving out as gotten better. Unfortunately the pain on the right side of his low back when he is standing and doing things like the dishes shaving or making food is persisting. A CT was obtained to evaluate the surgical site. The hardware looks like it is in excellent position, it appears that there is already evidence of some interbody fusion taking place. This is very reassuring, but he has multiple areas of overlapping arthritis through his lumbar spine which could explain the right-sided low back pain. On my exam he is tender over the SI joint as well. I reviewed his CT with him, showed him the hardware in the arthritic changes in the rest of the spine. He does have significant facet arthropathy below the fusion at the L5-S1 area. I am going to send him for right-sided L5-S1 facet block and see if this helps . He is known to and would like to return to him. If this helps, hopefully he can be a candidate for denervation. If this does not help, we should consider an SI joint block. He will call me after the injection. Judson Fritz MD, PhD [facility] Orders: Referrals Pain Management Referral Z98.1 - Arthrodesis status Coding Level of Care Code Global (99659) Diagnoses S/P spinal fusion Z98.1
== END 2024-07-20 10:08 | disposition home or self-care (01) ==
PROVIDERS: PCP Internal Medicine; Visit Provider Physician Assistant
DX: Z98.1 Arthrodesis status (principal)
CPT/HCPCS: 99024

== ENCOUNTER → 2024-07-20 08:47 | Outpatient (BNVA) | payer MEDICARE, SELFPAY | PROVIDERS: PCP Internal Medicine; Visit Provider Physician Assistant | DX: Z47.89 Encounter for other orthopedic aftercare (principal); Z98.1 Arthrodesis status | CPT/HCPCS: 99212 ==

== ENCOUNTER 2024-11-02 13:13 | Outpatient (AMB) | payer MEDICARE, SELFPAY ==
--- NOTE | 2024-11-02 13:37 | A.SPINEOV_ITS ---
Intake Visit Reasons: F/u after injections at [facility] Intake Note: Mr. Flores is here today to F/u after injections at [facility]. 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 Again this is a pain that started after surgery and has been nagging him an only getting worse since last year when he had his fusion. He underwent a CT and this revealed that he had solid fusion at the interbody space, no evidence of hardware complications. We considered alternate diagnosis of facet arthropathy on the right side below the fusion as well as possible SI joint inflammation. He underwent injections at both of these areas at [facility] [employer] and did not experience even a day worth of relief. I examined him again today and the area in question is right over the stab incision on the right side at the lower end of it. I was able to deeply palpate into that space and reproduce the pain. He describes it as being exactly where the pain starts when he gets up and starts moving around or trying to do activity. Dr. Fritz and I reviewed his CT scan done at [place] again and because there is evidence of solid interbody fusion, we are willing to offer him removal of the right-sided instrumentation. We are not sure how much this is going to help but is the only thing left we can think of given the persistent pain since surgery in that area. He understands that it may not be giving him 100% relief but that it is something we can do to exclude as a source of his pain. Total amount of time spent in this visit was 20 minutes in discussion of symptoms, CT scan imaging results and subsequent plan of care Judson Fritz MD,PhD [facility] Orders: Referrals Spine Surgery Notification Z98.1 - Arthrodesis status Coding Level of Care Code Est Pt Level 3 (53868) Diagnoses S/P spinal fusion Z98.1
== END 2024-11-02 15:05 | disposition home or self-care (01) ==
PROVIDERS: PCP Internal Medicine; Visit Provider Physician Assistant
DX: Z98.1 Arthrodesis status (principal)
CPT/HCPCS: 99213

== ENCOUNTER → 2024-11-02 13:13 | Outpatient (BNVA) | payer MEDICARE, SELFPAY | PROVIDERS: PCP Internal Medicine; Visit Provider Physician Assistant | DX: Z98.1 Arthrodesis status (principal) | CPT/HCPCS: 99212 ==

== ENCOUNTER 2024-12-27 06:19 | Day surgery (SDC) | payer MEDICARE, SELFPAY ==
[2024-12-11 12:28] VITALS: BMI 30.5
[2024-12-27] VITALS (7 sets, daily range): BP systolic 92–146; BP diastolic 55–88; PULSE 57–86; RESP 12–18; TEMP 36.1–36.7; O2SAT 96–100
--- NOTE | ~2024-12-27 | FL_ITS ---
EXAMINATION: FL GUIDANCE ONLY HISTORY: Removal of spinal instrumentation Right COMPARISON: Correlation is made with plain films of the lumbar spine dated 07/12/2024. TECHNIQUE: Fluoroscopy time: Less than 1 minute. Cumulative Dose: 0.478 mGy. DAP: 0.130 mGym2 Images: 1. FINDINGS: A single fluoroscopic spot film of the lumbar spine in the AP projection was obtained, demonstrating posterior fusion of L4 and L5 with pedicle screws, spinal stabilization rods, and an intervertebral spacer. FL/FL guidance in OR IMPRESSION: Fluoroscopy during procedure. Please see procedure report for additional information. Electronically signed by: Dennys Duong MD 12/27/2024 10:01 AM EDT
--- NOTE | 2024-12-27 07:04 | MHC.SHP ---
Pre-Procedural Eval Section A - 24 Hr Update-Section A only Date of Service: 12/27/24 The patient is an INPATIENT: No Changes since office visit: No Cold of Flu in the past 2 weeks, No New Medical Problems, No Changes in Medication and No Patient answered all questions The patient has been examined within 24 hours of the surgical procedure. The History & Physical has been completed within 30 days and I have reviewed it.: No Section B - Complete if H&P > 30 days Chief Complaint: Arthrodesis status Allergies: Allergies Allergy/AdvReac Type Severity Reaction Status Date / Time No Known Allergies Allergy Verified 12/27/24 07:03 Review of Systems Sugical H&P ROS: Negative: Constitution, Cardiovascular, Respiratory, Neurological, Psychiatric, Hem-Onc, Allergic/Immunologic, Gastrointestinal, Genitourinary, Musculoskeletal, Integumentary, Endocrine and Eyes/Ears/Nose/Throat Exam Surgical H&P Exam: Normal: HEENT, Normal: Heart, Normal: Lungs, Normal: Extremities, Normal: Abdomen, Normal: Skin and Normal: Neurological (Awake alert oriented) Plan Removal of spinal instrumentation Time Spent With Patient Time: Total time managing care of this patient today _ 5 ___ minutes.
--- NOTE | 2024-12-27 07:04 | PM.DS ---
DS: Providers Provider Date of Service: 12/27/24 Date of discharge: 12/27/24 Primary care physician: Jayesh Harirs MD Admitting clinician: Gen Fritz DS: Diagnosis Discharge Diagnosis (1) S/P spinal fusion: Status: Acute DS: Summary Time Attestation Discharge Coordination Time (in mins): 4 Quality: Safe Use of Opioids Does Pt have an Active Cancer Diagnosis on the Problem List?: No Quality: Stroke Does the patient have a stroke diagnosis?: No Physical Exam Vital Signs: Vital Signs: BMI result Body Mass Index 30.5 DS: Data Data Completed and Pending Completed studies during hospitalization [Text1]: Procedures Excision of Lumbar Vertebral Disc, Open Approach (05/08/24) Fusion of Lumbar Vertebral Joint with Interbody Fusion Device, Anterior Approach, Anterior Column, Open Approach (05/08/24) Insertion of Interspinous Process Spinal Stabilization Device into Lumbar Vertebral Joint, Open Approach (05/08/24) Monitoring of Peripheral Nervous Electrical Activity, Intraoperative, External Approach (05/08/24) Discharge Plan Discharge Patient Disposition: Home, Self-Care Referrals: Jayesh Harris MD [Primary Care Provider] - 1 Week Discharge Medications: New oxycodone 5 mg tablet 5 mg PO Q4H PRN (Reason: pain) Qty: 20 0RF Rx Instructions: Partial Fill upon patient request. Continued atorvastatin 80 mg tablet 80 mg PO DAILY venlafaxine 75 mg capsule,extended release 24hr 75 mg PO DAILY Rx Instructions: TAKE 1 CAPSULE BY MOUTH ONCE A DAY WITH 37.5 MG CAPSULE FOR TOTAL DOSE = 112.5 MG metoprolol succinate 50 mg tablet extended release 24 hr 100 mg PO DAILY fluticasone propionate [Flonase Allergy Relief] 50 mcg/actuation Phil Campbell,Suspension 1 spray INTRANASAL DAILY PRN (Reason: Allergy Symptoms) Rx Instructions: administer into each nostril hydroxyzine HCl 25 mg tablet 25 mg PO DAILY PRN (Reason: anxiety) acetaminophen 500 mg Tablet 1,000 mg PO QID PRN (Reason: Pain) cyclobenzaprine 5 mg tablet 5 mg PO TID Qty: 30 0RF oxycodone 5 mg tablet 5 mg PO Q6H PRN (Reason: severe pain (scale score 7-10)) Qty: 30 0RF Rx Instructions: Partial Fill upon patient request. nifedipine 60 mg Tablet Extended Release 24hr 60 mg PO DAILY lisinopril 30 mg Tablet 30 mg PO DAILY venlafaxine 150 mg Capsule,Extended Release 24hr 150 mg PO DAILY pantoprazole 40 mg Tablet,Delayed Release (Dr/Ec) 40 mg PO DAILY loratadine [Claritin] 10 mg Tablet 10 mg PO DAILY Held aspirin 81 mg Tablet,Chewable 81 mg PO DAILY Hold Instructions: Resume on 01/03/25. You may restart your aspirin 1 week after surgery Discharge Orders: Discharge Order (Routine); Ordered 12/27/24 Ordered By: Judson Maradiaga Diet: Advance to usual diet Activity on Discharge: As tolerated Activity Restrictions/Additional Instructions: After your spinal surgery we ask you to observe the following restrictions/guidelines: Activity: It is normal to feel some discomfort as you increase your activity, but that will improve with time. We ask you avoid heavy lifting or acitivities that cause pain. As a general rule, 8lbs is a safe limit for lifting right after surgery. Walk as much as you feel comfortable but not to exhaustion. You will feel extra tired the first few days after surgery. Stay well hydrated. It is OK to walk up and down stairs You may return to driving when you are off narcotics (such as vicodin, oxycodone, dilaudid, etc), and you are back to normal functional capacity. If you have any concerns please check with office before driving. Return to work is specific to each patient and each surgery, so please speak with your doctor/PA at first follow up. Please bring paperwork such as FMLA at that time if you need it filled out. Medications: You may restart your aspirin 1 week after surgery For optimum pain control, it is best to start with a combination of 500 mg of Tylenol every 4 hours with 600 mg of Motrin every 8 hours, and use narcotics as needed in between for breakthrough pain. We will give you a short supply of narcotics after surgery (usually one weeks worth). If you need more please call the office but do not use more than prescribed. You will need to give our office 48 hours notice if you need narcotics refilled and we do not fill narcotics on weekends or evenings. If you are on a narcotic, it is a good idea to take a stool softener such as colace or senna to avoid constipation If you take blood thinner such as aspirin, Plavix, Coumadin, Effient, Eliquis etc for conditions such as Afib, DVT, Pulmonary embolus, coronary disease, stents etc please speak with your surgeon about specific details as to when you can resume these medications. You can resume NSAIDs on post op day 1 (eg: Motrin, Naproxen, etc). Follow up: Please call the office, , after surgery to arrange a 3 week follow up for wound check. Wound Care: You may remove your dressing on the first day after surgery. ?You may ?leave open to air. Please do not remove the steri strips underneath. they will fall off on their own in one week. IT IS NORMAL FOR THE WOUND TO OOZE OR BE BLOODY FOR A FEW DAYS AFTER SURGERY. ?IF THIS HAPPENS JUST PLACE NEW DRESSING OVER IT TO AVOID STAINING CLOTHES. You may shower on post op day # 1 We ask that you do not let the water soak the wound. If it does get wet, just towel dry lightly. Please do not scrub your incision or place any type of chemical/ointment on the wound. No tub baths, pools or jacuzzis for one month. If you have any leaking or redness from your wound, or fevers, please call office Print Language: Qatari
[2024-12-27] MEDS: Lactated Ringers 1,000 ML 100 ML IVCONT (07:18)
[2024-12-27] MEDS: Gabapentin 300 MG CAPSULE PO (07:18)
[2024-12-27] MEDS: methocarbamoL 750 MG TABLET PO (07:18)
--- NOTE | 2024-12-27 07:50 | HO.ANESPROP2 ---
Documented by User: Sana Chand NP 12/25/24 15:12 HPI - Anesthesia Eval Consult details Narrative: 69yo M for Right REMOVAL of Spinal Instrumentation L4-5 Transkambin Lumbar Interbody Fusion, 05/08/24, GA-ETT 7.5 Cardiac optimized prior CAD s/p stent x 1 2018 GERD: prn Tums Anxious PMFSH Active Problems Active Problems: All Active Problems S/P spinal fusion (Acute) Spondylolisthesis, lumbar region (Acute) Past Medical History Medical History Environmental allergies Hx of sinusitis Allergic rhinitis GERD (gastroesophageal reflux disease) Atypical chest pain CAD (coronary artery disease) History of panic attacks Depression Anxiety Low back pain Seasonal allergies Elevated cholesterol HTN (hypertension) Family History Family history of problems with anesthesia: No Surgical History Surgical History Hx of spinal surgery (05/08/24) Hx of cardiac cath (2018) Hx of colonoscopy H/O heart artery stent (~02/2019) History of Problems with Anesthesia: No Social History Social History (Updated 12/11/24 @ 12:27 by Rachell Denis RN) Household Members: None Housing: Apartment Are you a primary healthcare applications analyst to a significant other at home: No Do you presently have visiting nurse or other home services: No Patient Tobacco Use Status: Never used Tobacco Use of substances other than those prescribed or required for medical reasons: No Have you been hit, kicked, punched, or otherwise hurt by someone within the past year? If so, by whom?: No Are you DNR?: No Advance Directives: No Advance Directives Information Provided: Yes Advance Directives on File: No Healthcare Proxy: No Recently lost weight without trying: No Nutrition Risks: No Nutritional Risk Poor oral hygiene: No service: No Meds Allergies Allergy/AdvReac Type Severity Reaction Status Date / Time No Known Allergies Allergy Verified 12/27/24 07:03 Home Medications ?Medication ?Instructions ?Recorded ?Confirmed ?Last Taken ?Type aspirin 81 mg chewable tablet 81 mg PO DAILY 04/24/24 12/27/24 12/25/24 History atorvastatin 80 mg tablet 80 mg PO DAILY 04/24/24 12/27/24 12/27/24 History fluticasone propionate 50 1 spray intranasal DAILY PRN 04/24/24 12/27/24 Unknown History mcg/actuation nasal Allergy Symptoms spray,suspension (Flonase Allergy Relief) metoprolol succinate 50 mg 100 mg PO DAILY 04/24/24 12/27/24 12/27/24 History tablet,extended release 24 hr venlafaxine 75 mg capsule,extended 75 mg PO DAILY 04/24/24 12/27/24 12/27/24 History release 24 hr acetaminophen 500 mg tablet 1,000 mg PO QID PRN Pain 04/25/24 12/27/24 Unknown History hydroxyzine HCl 25 mg tablet 25 mg PO DAILY PRN anxiety 04/25/24 12/27/24 Unknown History lisinopril 30 mg tablet 30 mg PO DAILY 12/11/24 12/27/24 12/27/24 History loratadine 10 mg tablet (Claritin) 10 mg PO DAILY 12/11/24 12/27/24 Unknown History nifedipine 60 mg tablet,extended 60 mg PO DAILY 12/11/24 12/27/24 Unknown History release 24 hr pantoprazole 40 mg tablet,delayed 40 mg PO DAILY 12/11/24 12/27/24 Unknown History release venlafaxine 150 mg 150 mg PO DAILY 12/11/24 12/27/24 12/27/24 History capsule,extended release 24 hr Exam Height,Weight and Vital Signs: Height 6 ft Weight 102.058 kg Assessment and Plan Assessment Anesthesia Assessment: Chart Reviewed Final Anesthetic Review Family History of Problems with Anesthesia: No History of Problems with Anesthesia: No Documented by User: Falguni Milian DO 12/27/24 07:54 [facility] Past Medical History Medical History Environmental allergies Hx of sinusitis Allergic rhinitis GERD (gastroesophageal reflux disease) Atypical chest pain CAD (coronary artery disease) History of panic attacks Depression Anxiety Low back pain Seasonal allergies Elevated cholesterol HTN (hypertension) Family History Family history of problems with anesthesia: No Surgical History Surgical History Hx of spinal surgery (05/08/24) Hx of cardiac cath (2018) Hx of colonoscopy H/O heart artery stent (~02/2019) History of Problems with Anesthesia: No Social History Social History (Updated 12/11/24 @ 12:27 by Rachell Denis RN) Household Members: None Housing: Apartment Are you a primary healthcare applications analyst to a significant other at home: No Do you presently have visiting nurse or other home services: No Patient Tobacco Use Status: Never used Tobacco Use of substances other than those prescribed or required for medical reasons: No Have you been hit, kicked, punched, or otherwise hurt by someone within the past year? If so, by whom?: No Are you DNR?: No Advance Directives: No Advance Directives Information Provided: Yes Advance Directives on File: No Healthcare Proxy: No Recently lost weight without trying: No Nutrition Risks: No Nutritional Risk Poor oral hygiene: No service: No Meds Allergies Allergy/AdvReac Type Severity Reaction Status Date / Time No Known Allergies Allergy Verified 12/27/24 07:03 Home Medications ?Medication ?Instructions ?Recorded ?Confirmed ?Last Taken ?Type aspirin 81 mg chewable tablet 81 mg PO DAILY 04/24/24 12/27/24 12/25/24 History atorvastatin 80 mg tablet 80 mg PO DAILY 04/24/24 12/27/24 12/27/24 History fluticasone propionate 50 1 spray intranasal DAILY PRN 04/24/24 12/27/24 Unknown History mcg/actuation nasal Allergy Symptoms spray,suspension (Flonase Allergy Relief) metoprolol succinate 50 mg 100 mg PO DAILY 04/24/24 12/27/24 12/27/24 History tablet,extended release 24 hr venlafaxine 75 mg capsule,extended 75 mg PO DAILY 04/24/24 12/27/24 12/27/24 History release 24 hr acetaminophen 500 mg tablet 1,000 mg PO QID PRN Pain 04/25/24 12/27/24 Unknown History hydroxyzine HCl 25 mg tablet 25 mg PO DAILY PRN anxiety 04/25/24 12/27/24 Unknown History lisinopril 30 mg tablet 30 mg PO DAILY 0212/27/24 12/27/24 History loratadine 10 mg tablet (Claritin) 10 mg PO DAILY 12/11/24 12/27/24 Unknown History nifedipine 60 mg tablet,extended 60 mg PO DAILY 12/11/24 12/27/24 Unknown History release 24 hr pantoprazole 40 mg tablet,delayed 40 mg PO DAILY 12/11/24 12/27/24 Unknown History release venlafaxine 150 mg 150 mg PO DAILY 12/11/24 12/27/24 12/27/24 History capsule,extended release 24 hr Exam Exam Date and Time: 12/27/24 0750 Height,Weight and Vital Signs: Height 6 ft Weight 102.058 kg Vital Signs Temperature 98.0 F 12/27/24 07:20 Pulse Rate 86 12/27/24 07:20 Respiratory Rate 18 12/27/24 07:20 Blood Pressure 146/88 H 12/27/24 07:20 Pulse Oximetry 97 12/27/24 07:20 Oxygen Delivery Method Room Air 12/27/24 07:20 Temperature 98.0 F 12/27/24 07:20 Pulse Rate 86 12/27/24 07:20 Respiratory Rate 18 12/27/24 07:20 Blood Pressure 146/88 H 12/27/24 07:20 Pulse Oximetry 97 12/27/24 07:20 Oxygen Delivery Method Room Air 12/27/24 07:20 Airway Mallampati Class: I TM Dist: <=3cm Neck ROM: Full Loose/Missing/Broken Teeth: Yes (several missing and broken molars but no loose teeth) Heart: S1S2 Lungs: CTAB Assessment and Plan Assessment Anesthesia Assessment: Anesthesia Plan Discussed and Chart Reviewed Final Anesthetic Review Family History of Problems with Anesthesia: No History of Problems with Anesthesia: No NPO: Yes ASA Class: III Final Preanesthetic Review: No Changes in Pt Med Stat, Meds/Allgs Chart Reviewed, Consent Obtained/Reviewed and Anes Risks/Benef Reviewed Patient Risk: Intermediate Procedure Risk: Low Anesthetic Plan Anesthetic Plan: GA and Agree w/ Assess. and Plan Disposition: Standard PACU
[2024-12-27] MEDS: ceFAZolin Sodium/Dextrose,Iso 2 GM/50 ML PIGGYBACK IV (08:45)
--- NOTE | 2024-12-27 09:42 | W.PM.OPN ---
Operative Note Operative Note Date of Service: 12/27/24 Narrative: Preoperative Diagnosis: Painful hardware Postoperative diagnosis: Same Operation: Removal posterior lumbar instrumentation L3-4 Consent Informed Consent was obtained for this operation. I have explained the nature, purpose and benefits of the operation. I have discussed the risks and benefit of the operation including possible complications or adverse events with patient/family. Alternative(s) were discussed with the patient with their relative benefits and risks as well as the consequences of not accepting the operation were included in obtaining consent. Surgeon: NOEL MIRANDA MD, PHD Procedure Assisted By: Judson Franco Description of Procedure This patient underwent an oblique lateral lumbar interbody fusion and posterior instrumented fusion. He continues to complain of her right-sided back pain over the hardware. He was offered removal of the posterior instrumentation. The procedure complications were explained. The patient was consented. The patient was brought to the operating room and endotracheally intubated. The patient was turned in prone position on the Emanuel frame. Prep and drape was done followed by timeout. The previous paramedian incisions were opened. The posterior instrumentation was exposed. The locking caps and rods were removed bilaterally. Then the screws of L3 and L4 were removed. In total 4 screws were removed. Hemostasis was done. The physician financial legal assistant close the Incision in 2 layers. Steri-Strips were used to approximate incision. An OpSite with Tegaderm was used to cover the incision. All sponge needle counts were correct. Patient was extubated and transported in stable is to recovery room. Anesthesia: General Estimated Blood Loss (ml): 40 Complications: None Duration of Surgery: 45 Minutes Postoperative Plan: Discharge to home
== END 2024-12-27 15:32 | disposition home or self-care (01) ==
PROVIDERS: PCP Internal Medicine; Visit Provider Neurological Surgery
PROC: (CPT 22852; principal; 2024-12-27 09:10)
DX: T84.84XA Pain due to internal orthopedic prosthetic devices, implants and grafts, initial encounter (principal); M54.50 Low back pain, unspecified; Z98.1 Arthrodesis status; Y75.2 Prosthetic and other implants, materials and neurological devices associated with adverse incidents
CPT/HCPCS: 22852; J0131; J0690; J1100; J1885; J2003; J2250; J2405; J2704; J3010

== ENCOUNTER → 2024-12-27 06:19 | Outpatient (BNV) | payer MEDICARE, SELFPAY | PROVIDERS: PCP Internal Medicine; Visit Provider Physician Assistant | DX: Z98.1 Arthrodesis status (principal) | CPT/HCPCS: 22850; 99499 ==

== ENCOUNTER 2025-01-17 09:51 | Outpatient (AMB) | payer MEDICARE, SELFPAY ==
--- NOTE | 2025-01-17 09:53 | A.SPINEOV_ITS ---
Intake Visit Reasons: 1st post op Intake Note: Mr. Flores is here today for his 1st post op. Housing Quality Standard Inspector Required: No Allergies No Known Allergies Allergy (Verified 01/17/25 09:53) Assessment & Plan Assessment & Plan (1) S/P spinal fusion: Code(s): Z98.1 - Arthrodesis status Category: Surgical Plan Procedure: Removal posterior instrumentation L3-4Liam Hernandez is a pleasant 69 year old male who underwent removal of posterior instrumentation with Dr. Fritz. He comes in today for his 1st postoperative visit. He reports that his pain is significantly worse after surgery. He is very concerned that his axial low back pain is much worse than it was prior to the removal of the instrumentation at L3-4. He now also has a sharp pain in his left groin since the surgery. We discussed his symptoms at length. It does not sound like he is having any radicular shooting pains down his bilateral lower extremities, it is primarily just concerned about the axial low back pain. No new neurological deficits. The posterior incision sites appear closed and well healing with no signs of erythema, edema, or drainage. The patient ambulates well in his very physically functional throughout his examination. At one point he extensively explained the stretches he is able to complete at home, lifting his knees to his chest. He is able to rise out of an examination chair very abruptly without assistance of the chair. His gait appears normal. I would like to send the patient for a set of flexion/extension x-rays to ensure there is no instability as a result of removing the posterior instrumentation L3-4. I doubt this would be the case is Dr. Fritz would not remove this instrumentation if he expected instability to occur. I will review the images after their read by Radiology and follow up with the patient thereafter via phone call. Kye Fritz MD,PhD [facility] Orders: Orders XR lumbar spine 4V min Today Z98.1 - Arthrodesis status Coding Level of Care Code Global (73669) Diagnoses S/P spinal fusion Z98.1
--- OUTSIDE RECORDS SUMMARY | 2025-01-17 10:29 | XMS_ITS | Clinical Summary ---
Author Organization [facility] Address [address] [place] [address] Care Team Providers Care Rn Surgical Name Role Phone Oscar Hayden MD Primary Care Provider [phone] Allergies No known active allergies Medications Medication Sig Dispensed Refills Start Date End Date Status citalopram (CeleXA) 20 MG tablet Take 20 mg by mouth daily. 3 01/01/2019 Active metoprolol succinate (TOPROL-XL) 24 hr tablet 200 mg Take 200 mg by mouth daily. 5 02/09/2019 Active omeprazole (PriLOSEC) 20 MG capsule Take 20 mg by mouth daily. 3 01/04/2019 Active aspirin EC 81 MG EC tablet Take 1 tablet (81 mg total) by mouth daily. 30 tablet 3 03/03/2019 Active ranolazine (RANEXA) 1000 MG SR tablet Take 1 tablet (1,000 mg total) by mouth 2 (two) times a day. 60 tablet 3 03/02/2019 Active atorvastatin (LIPITOR) tablet 40 mg Take 1 tablet (40 mg total) by mouth every night at bedtime. 30 tablet 3 03/02/2019 Active ticagrelor (BRILINTA) 90 MG TABS tablet Take 1 tablet (90 mg total) by mouth every 12 (twelve) hours. 60 tablet 3 03/02/2019 Active isosorbide mononitrate (IMDUR) 30 MG 24 hr tablet Take 2 tablets (60 mg total) by mouth daily. 30 tablet 3 03/28/2019 Active NIFEdipine ER (ADALAT CC) 30 MG 24 hr tablet Take 1 tablet (30 mg total) by mouth daily. 30 tablet 30 04/04/2020 Active Active Problems Problem Noted Date Diagnosed Date Chest pain 03/26/2019 Chest pain on exertion 02/27/2019 HTN (hypertension) Hyperlipidemia Family History Medical History Relation Name Comments No Sig Med Hx Brother Ulcers Father PUD Liver disease Mother No Sig Med Hx Sister 1 Heart attack Sister 2 Relation Name Status Comments Brother Alive Father Mother Sister 1 Alive Sister 2 Social History Tobacco Use Types Packs/Day Years Used Date Smoking Tobacco: Never Smokeless Tobacco: Never Alcohol Use Standard Drinks/Week Comments Yes 10 (1 standard drink = 0.6 oz pu re alcohol) Sex and Gender Information Value Date Recorded Sex Assigned at Male 02/28/2019 8:08 AM EDT Gender Identity Not on file Sexual Orientation Not on file Last Filed Vital Signs Vital Sign Reading Time Taken Comments Blood Pressure 131/81 03/28/2019 12:42 PM EDT Pulse 63 03/28/2019 12:42 PM EDT Temperature 36.7 ??C (98.1 ??F) 03/28/2019 12:42 PM E DT Respiratory Rate 17 03/28/2019 12:42 PM EDT Oxygen Saturation 96% 03/28/2019 12:42 PM EDT Inhaled Oxygen Concentration - - Weight 89.4 kg (197 lb 3.2 oz) 03/28/2019 4:40 A M EDT Height 182.9 cm (6') 03/26/2019 10:55 PM EDT Body Mass Index 26.75 03/26/2019 10:55 PM EDT Plan of Treatment Health Maintenance Due Date Last Done Comments Hepatitis C Screening 1955 COVID-19 Vaccine (#1) 04/18/1958 Depression Screening 1969 BMI Counseling 1975 Preventative Health Evaluation 1975 Colon Cancer Screening (Colonoscopy) 2002 Shingrix-Zoster Vaccine (1 of 2) 2007 Fall Risk Assessment 2022 Pneumococcal Vaccine (1 of 1 - PCV) 2022 DTap / Tdap / Td (2 - Td or Tdap) 06/01/2023 013 Influenza Vaccine (#1) 2024 RSV Adult > 60+ Yrs or Pregn ant (1 - 1-dose 75+ series) 2032 Hepatitis B Vaccines Aged Out No long er eligible based on patient's age to complete this topic RSV Ped < 20 months Aged Out No longe r eligible based on patient's age to complete this topic Medical Devices Implanted Type Area Test Specialist Device Identifier Shelf Expiration Date Model / Serial / Lot System Austen Ruiz 28mm 2.75mm Rapdx Everolimus Coronary - [id number] - [id number] Implanted:2018 at [facility] and Med (Quantity not on file) [employer] [id number] / / Advance Directives For more information, please contact: [phone] Latest Code Status on File Code Status Date Activated Date Inactivated Comments Full Code 03/26/2019 9:59 PM 03/28/2019 9:02 PM This code status was ascertained in the following way: discussion with patient . Code Status History Code Status Date Activated Date Inactivated Comments Full Code 03/01/2019 1:17 PM 03/03/2019 10:51 PM This code status was ascertained in the following way: discussion with patient . Full Code 02/27/2019 4:52 PM 03/01/2019 1:17 PM This code status was ascertained in the following way: discussion with patient . Care Teams Rn Surgical Relationship Specialty Start Date End Date Oscar Hayden MD [address] [place] [address] PCP - General Jboss Architect 02/24/19
--- OUTSIDE RECORDS SUMMARY | 2025-01-17 10:29 | XMS_ITS | Clinical Summary ---
Author Organization [address] [place] [address] [place] [phone] Phone Care Team Providers Care Home Care Associate Name Role Phone Jayesh Harris MD Primary Care Provider [phone] Allergies Active Allergy Reactions Criticality Noted Date Comments House Dust Mite 06/01/2013 Mold 06/01/2013 Pollen Extracts 06/01/2013 Medications venlafaxine XR (EFFEXOR-XR) 75 mg 24 hr capsule Take 1 Capsule by mouth daily. TAKEN WITH 37.5 MG DAILY Active fluticasone propionate (FLONASE) 50 mcg/actuation nasal spray 1 [place] by Each Nare route daily. Active atorvastatin (LIPITOR) 80 mg tablet Take 1 Tablet by mouth every evening. Dose increased after having lab work done, per pt Active hydrOXYzine HCL (ATARAX) 25 mg tablet Take 1 tablet (25 mg total) by mouth 3 (three) times a day if needed for anxiety. 08/20/20 22 Active blood pressure test kit-large kit 1 Units by Does not apply route daily. 12/10/19 21 Active MULTIVITAMIN ORAL Take by mouth. Multiple Vitamins-Mine rals (MULTIVITAMIN ADULTS 50+) Tab Active aspirin 81 mg EC tablet Take 81 mg by mouth daily. Active NIFEdipine CC (ADALAT CC) 60 mg 24 hr tablet Take 1 tablet (60 mg total) by mouth 1 (one) time each day before breakfast. Do not crush, chew, or split. Active venlafaxine XR (EFFEXOR-XR) 150 mg 24 hr capsule Take 1 capsule (150 mg total) by mouth 1 (one) time each day. Do not crush or chew. Active metoprolol succinate (TOPROL-XL) 100 mg 24 hr tablet TAKE 1 TABLET BY MOUTH EVERY DAY 90 tablet 3 11/13/19 25 Active lisinopriL (PRINIVIL,ZEST RIL) 20 mg tablet TAKE 1 TABLET BY MOUTH EVERY DAY 90 tablet 1 12/25/19 25 Active pantoprazole (PROTONIX) 40 mg EC tablet Take 1 tablet (40 mg total) by mouth 1 (one) time each day before breakfast. Do not crush, chew, or split. Active lisinopriL (PRINIVIL,ZEST RIL) 20 mg tablet Take 1 tablet (20 mg total) by mouth 1 (one) time each day. 025 Discontinued Active Problems Problem Noted Date Diagnosed Date Allergic rhinitis 09/05/2024 Anxiety 09/05/2024 Essential hypertension, benign 09/05/2024 Assessment & Plan (2024 10:48 AM EST): Patient's blood pressure is well-controlled on his current doses of NEAL inhibitor, beta-danielle and calcium channel danielle. We discussed how we have been unsuccessful in adjusting his antihypertensive regimen to allow for reduction in his beta- danielle therapy to permit allergy testing. He reports that he wants to have allergy testing so he can understand to what he is allergic. However, we did discuss that there may be limited utility in this and perhaps remaining on his current antihypertensive regimen would be better in the long run. At this time, he agrees Hyperlipidemia 09/05/2024 Assessment & Plan (2024 10:48 AM EST): Well-controlled lipid profile on high intensity statin. Continue Chest pain 08/13/2022 Sinusitis with nasal polyps 07/16/2022 Overview (09/05/2024): CT 07/16/2022 Heart murmur 07/01/2022 Movement disorder 07/01/2022 Overview (09/05/2024): anxiety related Gastroesophageal reflux disease without esophagi tis 05/09/2019 CAD (coronary artery disease) 03/20/2012 Overview (2024): - Status postcardiac catheterization in February 2019 at [facility] during which time he was found to have 70% mid LAD stenosis and 60% distal LAD stenosis with no other hemodynamically significant disease with the exception of the fact that the RCA could not be engaged, status post drug-eluting stent to the mid LAD - Subsequent CT coronary angiography later in February 2019 showed that the RCA had a high origin above the right coronary sinus and that there were calcified plaques throughout the RCA limited by streak artifacts but there is at least moderate stenosis of the proximal RCA due to mixed plaque -He has had numerous subsequent stress test thereafter; the most recent of which was in July 2022 performed for symptoms of ongoing chest pain- it showed normal myocardial perfusion with preserved ejection fraction of 63% with normal regional wall motion - Most recent echocardiogram from 09/23/2023 showed mild, concentric left ventricular hypertrophy with normal cavity size and systolic function, normal regional wall motion with an ejection fraction of 60 to 65%, normal RV size and systolic function, no hemodynamically significant valve disease Assessment & Plan (2024 10:48 AM EST): Currently, the patient denies any anginal sounding chest discomfort to his albeit limited MET workload given his ongoing back issues. For now, continue ongoing medical therapy with aspirin, beta-danielle, calcium channel danielle and statin. He will notify me of any changes in his current condition. Encounters Date Type Department Care Team Description 01/09/2025 Telephone [facility] Cardiology [facility] - [address] [place] [address] Vijaya Varghese MD Other 12/21/2024 Telephone [facility] Cardiology [facility] - [facility] [address] [place] [address] Jayesh Harris MD Medical Records 2024 9:10 AM EST Office Visit [facility] Cardiology [facility] - [address] [place] [phone] Kerry Franco NP Coronary artery disease involving [place] heart with other form of angina pectoris, unspecified vessel or lesion type (CMS/HCC) (Primary Dx); Essential hypertension, benign; Pure hypercholesterolemia from Last 3 Months Immunizations Name Administration Dates Next Due Influenza Quadravalent, MDCK , 0.5ml, preservative free (Flucelvax) 6mo and older 07/01/2022,08/16/2019 Pfizer SARS-CoV-2 COVID-19, mRNA, LNP-S, preservative free 02/24/2021 Td Tetanus diptheria (Tdvax) 7yo and older 03/25,01/15/1994 Tdap Tetanus diptheria acell ular pertussis (Boostrix; Adacel) 7yo and older 07/30/2020,06/01/2013 Surgical History Surgery Date Site/Laterality Comments OTHER SURGICAL HISTORY PROCEDURE: HISTORY OTHER; COMMENT: cyst excision CORONARY STENT PLACEMENT 02/2019 PROCEDURE: STENT, CORONARY, SAJAN COLONOSCOPY 10/02/2010 PROCEDURE: HISTORICAL COLONOSCOPY; COMMENT: Normal COLONOSCOPY 08/27/2020 PROCEDURE: HISTORICAL COLONOSCOPY; COMMENT: 8 mm proximal transverse colon polyp removed; path = benign collection of lymphocytes. Medical History Medical History Date Comments Essential hypertension, benign D X:Essential hypertension, benign Allergic rhinitis DX:Allergic rh initis Anxiety DX:Anxiety CAD (coronary artery disease) 03/20/2012 DX :CAD (coronary artery disease); COMMENT: 02/2019 S/p Stent and angioplasty ([place]) Hyperlipidemia DX:Hyperlipidemi a Sinusitis with nasal polyps 07/16/2022 DX:S inusitis with nasal polyps; COMMENT: CT 07/16/2022 Family History Medical History Relation Name Comments Hypertension Brother CABG Father HTN ( at 84 ) CABG Mother Kidney failure Mother HTN Heart attack Sister 1 Glaucoma Colon cancer Neg Hx Relation Name Status Comments Brother Alive Father (Age 84) Maternal Grandfather Maternal Grandmother Mother (Age 80) Paternal Grandfather Paternal Grandmother Sister 1 (Age 45) Sister 2 Alive Social History Tobacco Use Types Packs/Day Years Used Date Smoking Tobacco: Never Smokeless Tobacco: Never Alcohol Use Standard Drinks/Week Comments Yes 0 (1 standard drink = 0.6 oz pur e alcohol) Sex and Gender Information Value Date Recorded Sex Assigned at Not on file Legal Sex Male 2:17 PM EST Gender Identity Not on file Sexual Orientation Not on file Obstetrics History Last Filed Vital Signs Vital Sign Reading Time Taken Comments Blood Pressure 136/80 2024 9:05 AM EST Pulse 74 2024 9:05 AM EST Temperature - - Respiratory Rate - - Oxygen Saturation 98% 2024 9:05 AM EST Inhaled Oxygen Concentration - - Weight 102 kg (225 lb) 2024 9:05 AM EST Height 182.9 cm (6') 2024 9:05 AM EST Body Mass Index 30.52 2024 9:05 AM EST Plan of Treatment Health Maintenance Due Date Last Done Comments Depression Screening 09/24/2022 Medicare Annual Wellness Visit 09/24/2022 Social Influencers of Health Screening 09/24/2022 Falls Risk Assessment 2022 Hypertension/CHF/CAD Annual BMP Blood Test 07/23/2023 07/23/2022, 03/27/2019, 03/27/2019, Additional history exists Cholesterol Screening (Lipid Panel) 07/23/2027 07/23/2022, 03/27/2019, 03/27/2019 DTaP,Tdap,and Td Vaccines (5 - Td or Tdap) 07/30/2030 07/30/2020, 06/01/2013, 03/25/2004, Additional history exists Colorectal Cancer Screening: Colonoscopy 08/27/2030 08/27/2020 Hepatitis C Screening Completed 07/13/2016 Pneumococcal Vaccine: 50+ Years Completed 07/19/2023 RSV Immunization Adult Patients Completed 09/20/2023 Zoster Vaccines Completed 09/20/2023, 07/20/2023 COVID-19 Vaccine Completed 08/14/2024, 08/2021, 02/03/2021 Influenza Vaccine Completed 08/14/2024, , 07/01/2022, Additional history exists HIB Vaccines Aged Out No longer eligi ble based on patient's age to complete this topic HPV Vaccines Aged Out No longer eligi ble based on patient's age to complete this topic Hepatitis A Vaccines Aged Out No long er eligible based on patient's age to complete this topic Hepatitis B Vaccines Aged Out No long er eligible based on patient's age to complete this topic IPV Vaccines Aged Out No longer eligi ble based on patient's age to complete this topic MMR Vaccines Aged Out No longer eligi ble based on patient's age to complete this topic Meningococcal ACWY Vaccine Aged Out N o longer eligible based on patient's age to complete this topic Meningococcal B Vacine Aged Out No lo nger eligible based on patient's age to complete this topic RSV Immunization Patients Under 20 months Aged Out No longer eligible based on patient's age to complete this topic Varicella Vaccines Aged Out No longer eligible based on patient's age to complete this topic Medical Devices Implanted Type Area Helicopter Utility Aircrewman Device Identifier Shelf Expiration Date Model / Serial / Lot System Xiencjudith JonesSara 28mm 2.75mm Rapdx Everolimus Coronary - [id number] Implanted:2018 (Quantity not on file) [employer] VASCULAR [id number] / / Procedures Procedure Name Priority Date/Time Associated Diagnosis Comments ECG 12-LEAD Routine 2024 10:49 AM EST Coronary artery disease involving [place] heart with other form of angina pectoris, unspecified vessel or lesion type (CMS/HCC) ANNUAL BMP BLOOD TEST Routine 07/23/2022 LIPID PANEL Routine 07/23/2022 COLONOSCOPY Routine 08/27/2020 HEPATITIS C SCREENING Routine 07/13/2016 from Last 3 Months or Most Recently Relevant to Health Maintenance Results * ECG 12 lead (2024 10:49 AM EST) Ventricular Rate ECG 74 BPM GEMUSE Atrial Rate 74 BPM GEMUSE P-R Interval 148 ms GEMUSE QRS Duration 88 ms GEMUSE Q-T Interval 388 ms GEMUSE QTc 430 ms GEMUSE P Wave Cameron 39 degrees GEMUSE R Cameron 66 degrees GEMUSE T Cameron 40 degrees GEMUSE ECG Interpretation Normal sinus rhythm Normal ECG When compared with ECG of 18-JUL-2022 10:26, No significant change was found Confirmed by VIJAYA VARGHESE ([id number]) on 2024 4:15:52 PM GEMUSE 2024 9:13 AM EST 2024 4:15 PM EST Kerry Salvador SWITCHBOX ASSEMBLER ECG ORDERABLES Edited Result - Final GEMUSE * Annual BMP Blood Test (07/23/2022) [facility] Annual BMP Blood Test abstracted [facility] Provider HEALTH MAINTENANCE Final Result * Lipid panel (07/23/2022) [facility] LDL/HDL Ratio 2 0 - 4 Triglycerides 81 0 - 150 mg/dL Cholesterol 126 0 - 200 mg/dL HDL 68 >=40 mg/dL LDL Cholesterol 42 0 - 100 mg/dL Blood Venous blood specimen / Unknown [facility] Provider LAB BLOOD ORDERABLES Karoline l Result * Colonoscopy (08/27/2020) [facility] Colonoscopy abstracted, no interpretation Anatomical Region Laterality Modality Other [facility] Provider HEALTH MAINTENANCE Final Result * Hepatitis C Screening (07/13/2016) [facility] Hepatitis C Screening abstracted [facility] Provider HEALTH MAINTENANCE Final Result from Last 3 Months or Most Recently Relevant to Health Maintenance Insurance MEDICARE [facility] Care Teams Home Care Associate Relationship Specialty Start Date End Date Jayesh Harris MD [address] [place] [address] PCP - General 01/13/24
--- OUTSIDE RECORDS SUMMARY | 2025-01-17 10:29 | XMS_ITS | Clinical Summary ---
Author Organization [facility] Address [address] [place] [address] Care Team Providers Care Yarn Examiner Name Role Phone Pcp, No Primary Care Provider Unavailabl e Allergies Active Allergy Reactions Criticality Noted Date Comments Dust Mite Extract Cough Low 06/01/2013 Molds & Smuts Cough Low 06/01/2013 Pollen Extract Cough Low 06/01/2013 Medications Medication Sig Dispensed Refills Start Date End Date Status atorvastatin (LIPITOR) 40 MG tablet Take 40 mg by mouth daily. 05/27/2020 Active metoPROLOL SUCCINATE (TOPROL-XL) 200 MG 24 hr tablet Take 200 mg by mouth daily. 04/14/2020 Active sertraline (ZOLOFT) 100 MG tablet Take 100 mg by mouth daily. 05/22/2020 Active NIFEdipine ER (ADALAT CC) 30 MG 24 hr tablet Take 30 mg by mouth daily. 07/04/2020 Active aspirin 81 MG chewable tablet Chew 81 mg daily. Active Multiple Vitamins-Minerals (Multivitamin Adults 50+) Tab Take by mouth. Active ALPRAZolam (XANAX) 0.5 MG tablet Take 0.5 mg by mouth. 08/16/2019 Active Social History Tobacco Use Types Packs/Day Years Used Date Smoking Tobacco: Never Smokeless Tobacco: Never Sex and Gender Information Value Date Recorded Sex Assigned at Not on file Gender Identity Not on file Sexual Orientation Not on file Last Filed Vital Signs Vital Sign Reading Time Taken Comments Blood Pressure 119/79 07/21/2020 9:06 AM EDT Pulse 66 07/21/2020 9:06 AM EDT Temperature 36.8 ??C (98.3 ??F) 07/21/2020 9:06 AM ED T Respiratory Rate - - Oxygen Saturation 97% 07/21/2020 9:06 AM EDT Inhaled Oxygen Concentration - - Weight 88.5 kg (195 lb) 07/21/2020 9:06 AM EDT Height 182.9 cm (6') 07/21/2020 9:06 AM EDT Body Mass Index 26.45 07/21/2020 9:06 AM EDT Plan of Treatment Health Maintenance Due Date Last Done Comments Hepatitis C Virus Screening 1957 DTaP/Tdap/Td Vaccines (1 - Tdap) 1976 Colonoscopy 2002 Pneumococcal Vaccines 50+ (1 of 1 - PCV) 2007 Zoster (Shingles) Vaccine (1 of 2) 2007 RSV Vaccine 60 years and old er and Patients (1 - Risk 60-74 years 1-dose series) 2017 Influenza Vaccine 05/17/2024 COVID-19 Vaccine ( - 2023-2 5 season) 2024 Hepatitis B Vaccines Aged Out No long er eligible based on patient's age to complete this topic Care Teams Yarn Examiner Relationship Specialty Start Date End Date Pcp, No PCP - General General Medicine 07/16/20
--- OUTSIDE RECORDS SUMMARY | 2025-01-17 10:29 | XMS_ITS | Encounter Summary ---
Author Organization [facility] Address [address] [place] [address] Care Team Providers Care Ruby On Rails Developer Name Role Phone Jayesh Harris MD Primary Care Provider [phone] Reason for Referral * Imaging (Routine) - Authorized Specialty Diagnoses / Procedures Referred By Arely jovel Referred To Contact Radiology Diagnoses Coronary artery disease involving [place] coronary artery of [place] heart with other form of angina pectoris Other chest pain Essential hypertension, benign Pure hypercholesterolemia Procedures CT Angio Heart w 3D Imaging/Function Kerry Franco NP [address] [address] Phone: tel: fax: External Performed Referral ID Status Reason Start Date Expiration Date V isits Requested Visits Authorized [id number] Authorized 01/14/2025 01/14/2026 1 1 Reason for Visit * Reason Onset Date Comments Other 01/09/2025 Encounter Details Date Type Department Care Team (Late st Contact Info) Description 01/09/2025 Telephone [facility] - [facility] [address] [facility] 154 [place] [phone] Vijaya Warner MD 300 [place] [address] Other Social History Tobacco Use Types Packs/Day Years Used Date Smoking Tobacco: Never Smokeless Tobacco: Never Alcohol Use Standard Drinks/Week Comments Yes 0 (1 standard drink = 0.6 oz pur e alcohol) Sex and Gender Information Value Date Recorded Sex Assigned at Not on file Legal Sex Male 2:17 PM EST Gender Identity Not on file Sexual Orientation Not on file documented as of this encounter Progress Notes * Kerry Franco NP - 01/14/2025 4:02 PM EDT Call to pt. He thinks his back pain is only in his low back. He feels tired due to the low back pain. He needs to rest due to the low back pain. He has weakness and low energy. He denies upper chest pain. He does report what he considers to be GERD/acid reflux. He has fatigue and activity intolerance He agrees to coronary CTA. Procedure explained to pt * Kerry Franco NP - 01/12/2025 9:33 AM EDT Will call the pt next week and discuss repeating coronary CTA. This will not interfere with his back procedure/s * Debbie Kulkarni RN - 01/11/2025 9:31 AM EDT Called and provided KAUR otero . Patient finally stated he will call pcp again. I again reviewed when to call 911. * Kaur Valderrama NP - 01/11/2025 9:15 AM EDT This is an interesting call. It is hard for me to parcel through the patient's surgical pain, fatigue, heartburn. I think that in regards to his heartburn he should follow-up with his PCP, but should understand that coffee is still a trigger for this, he should go online and research triggering foods for heartburn. Stress test at this point might be contraindicated depending on how he feels postsurgery. It might not be a bad idea for him to have an ischemic evaluation, however, he should probably wait until he is healed more from the operation. Especially if he is planning to walk on the treadmill. As always if he feels like he is decompensating after the surgery then he should be evaluated in the emergency room. * Debbie Kulkarni RN - 01/09/2025 1:18 PM EDT JHONY 10/19/24 LC. DO you have any other recommendations? Spoke with patient. Below message is accurate. Patient is concerned that his fatigue has continued.Reports where fusion and pain in back is where the area is sore with palpation when he saw [facility]. Hehad surgery in December (2 weeks ago) and had all hardware removed from fusion that was done. Fatigue continues. Reports heartburn. Reports pain in back takes breath away. Reports leg pain and weakness, numbness in legs. [facility] Denied shortness of breath caused by activity. No heartburn today. Reports last heartburn lower chest earlier this a.m. after coffee lasting 10-20 minutes. He takes protonix 40 mg qd but states not taking regularly. Denied any other sx with heartburn. He states PCP recommended stress test. I advised pcp can order a stress test. I relayed reasons to call 911. * Urbano Koby - 01/09/2025 11:56 AM EDT David is calling because he has some concerns with his heart burn and his back pain. He had back surgery back in May 08 2024 for degrated disk to be fused and until december of 2024 he still felt pain so he went in for surgery on december 27 2024 to remove the screws and hardware from his back and is now recovering. He has been having heart burn consistently and more times when he is drinking coffee. He feels more tired since his surgery on december 27 and he doesn't know if it is because of his back pain or his heart burn. He had a ultrasound back in November he said and saw no ulcers. And about three weeks ago he saw his PCP and they had recommended he should try and get a stress test and see if that gives him a answer on what might be the cause of him being tired. If we can give him a call back just to discuss this he would appreciate it. documented in this encounter Plan of Treatment Scheduled Orders Name Type Priority Associated Diagnoses Orde r Schedule CT Angio Heart w 3D Imaging/Functio n Cardiac CT/MRI Routine Coronary artery disease involving [place] coronary artery of [place] heart with other form of angina pectoris (CMS/HCC) Other chest pain Essential hypertension, benign Pure hypercholesterolemia Expected: 01/14/2025, Expires: 01/14/2026 documented as of this encounter Visit Diagnoses Diagnosis Coronary artery disease involving [place] coronary artery of [place] heart with other form of angina pectoris- Primary Other chest pain Essential hypertension, benign Pure hypercholesterolemia documented in this encounter Historical Medications * This list may reflect changes made after this encounter. pantoprazole (PROTONIX) 40 mg EC tablet Take 1 tablet (40 mg total) by mouth 1 (one) time each day before breakfast. Do not crush, chew, or split. added in this encounter Care Teams Ruby On Rails Developer Relationship Specialty Start Date End Date Jayesh Harris MD [address] [place] [address] PCP - General 01/13/24 documented as of this encounter
== END 2025-01-17 10:36 | disposition home or self-care (01) ==
LOC: HO.HNS 09:52
PROVIDERS: PCP Internal Medicine; Visit Provider Physician Assistant
DX: Z98.1 Arthrodesis status (principal)
CPT/HCPCS: 99024

== ENCOUNTER 2025-01-17 09:51 | Outpatient (REF) | payer MEDICARE, SELFPAY ==
--- NOTE | ~2025-01-17 | XR_ITS ---
CLINICAL HISTORY: Z98.1 - Arthrodesis status 4 views lumbar spine Comparison: None Findings: Intervertebral disc spacer L3-L4 with bony remodeling, where there is grade 1 anterolisthesis. Mid and lower pars are obscured with likely L3 and L4 lysis versus osteotomy. Posterior elements partly obscured. No bony bridging callus as of yet. 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 Small asymmetric 12th ribs by this numbering system. Mild height losses are age indeterminate by radiographs. No definite radiographic findings of the acuity. Facet arthropathy is multifocal. Adjacent segment change at L4-L5 and L2-L3 with foraminal narrowing by radiographs. No significant change in vertebral heights are alignments with the attempted flexion or attempted extension. IMPRESSION: 1. No bony bridging or osseous fusion over the intervertebral disc spacer in the spine with transitional vertebral anatomy. 2. Mild vertebral height losses by radiographs. 3. Degenerative changes include facet arthropathy. This document has been electronically signed by: Gigi Brooke MD on 01/19/2025 01:20:52
--- OUTSIDE RECORDS SUMMARY | 2025-01-17 11:37 | XMS_ITS | Encounter Summary ---
Author Organization [facility] Address [address] [place] [address] Care Team Providers Care Fabric Pattern Grader Name Role Phone Jayesh Harris MD Primary Care Provider [phone] Reason for Referral * Imaging (Routine) - Authorized Specialty Diagnoses / Procedures Referred By Arely jovel Referred To Contact Radiology Diagnoses Coronary artery disease involving [place] coronary artery of [place] heart with other form of angina pectoris Other chest pain Essential hypertension, benign Pure hypercholesterolemia Procedures CT Angio Heart w 3D Imaging/Function Kerry Franco NP [address] [address] Phone: tel: fax: External Performed Referral ID Status Reason Start Date Expiration Date V isits Requested Visits Authorized [id number] Authorized 01/14/2025 01/14/2026 1 1 Reason for Visit * Reason Onset Date Comments Other 01/09/2025 Encounter Details Date Type Department Care Team (Late st Contact Info) Description 01/09/2025 Telephone [facility] 154 300 [facility] 154 [place] [phone] Vijaya Warner MD 300 [place] [address] Other Social History Tobacco Use Types Packs/Day [...] weakness, numbness in legs. [facility]. Denied shortness of breath caused [...] Cardiac CT/MRI Routine Coronary artery disease involving [place] coronary artery of [place] heart with other form of angina pectoris (CMS/HCC) Other chest pain Essential hypertension, benign Pure hypercholesterolemia Expected: 01/14/2025, Expires: 01/14/2026 documented as of this encounter Visit Diagnoses Diagnosis Coronary artery disease involving [place] coronary artery of [place] heart with other form of angina pectoris- [...] split. added in this encounter Care Teams Fabric Pattern Grader Relationship Specialty Start Date End Date Jayesh Harris MD [address] [place] [address] PCP - General 01/13/24 documented as of this encounter
--- OUTSIDE RECORDS SUMMARY | 2025-01-17 11:37 | XMS_ITS | Clinical Summary ---
Author Organization [address] [place] [address] [place] [phone] Phone Care Team Providers Care Ladies Locker Room Attendant Name Role Phone Jayesh Harris MD Primary Care Provider [phone] Allergies Active Allergy Reactions Criticality Noted Date Comments House Dust Mite 06/01/2013 Mold 06/01/2013 Pollen Extracts 06/01/2013 Medications venlafaxine XR (EFFEXOR-XR) 75 mg 24 hr capsule Take 1 Capsule by mouth daily. TAKEN WITH 37.5 MG DAILY Active fluticasone propionate (FLONASE) 50 mcg/actuation nasal spray 1 [place] by Each Nare route daily. Active atorvastatin [...] Status postcardiac catheterization in February 2019 at [facility] during which time he was found to [...] Type Department Care Team Description 01/09/2025 Telephone [facility] Cardiology [facility] [address] [place] [address] Vijaya Varghese MD Other 12/21/2024 Telephone [facility] Cardiology [facility] [address] [place] [address] Jayesh Harris MD Medical Records 2024 9:10 AM EST Office Visit [facility] Cardiology [facility] [address] [place] [id number] Kerry Franco NP 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, [...] disease); COMMENT: 02/2019 S/p Stent and angioplasty ([place]) Hyperlipidemia DX:Hyperlipidemi a Sinusitis with nasal polyps [...] this topic Medical Devices Implanted Type Area Winding Machine Operator Device Identifier Shelf Expiration Date Model / Serial / Lot System Xiencjudith JonesSara 28mm 2.75mm Rapdx Everolimus Coronary - [id number] Implanted:2018 (Quantity not on file) [email or web address] VASCULAR [id number] / / Procedures Procedure Name Priority Date/Time Associated Diagnosis Comments ECG 12-LEAD Routine 2024 10:49 AM EST 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 Annual BMP Blood Test abstracted [facility] Provider HEALTH MAINTENANCE Final Result * Lipid panel (07/23/2022) [facility] LDL/HDL Ratio 2 0 - 4 Triglycerides 81 0 - 150 mg/dL Cholesterol 126 0 - 200 mg/dL HDL 68 >=40 mg/dL LDL Cholesterol 42 0 - 100 mg/dL Blood Venous blood specimen / Unknown [facility] Provider LAB BLOOD ORDERABLES Karoline l Result * Colonoscopy (08/27/2020) [facility] Colonoscopy abstracted, no interpretation Anatomical Region Laterality Modality Other [facility] Provider HEALTH MAINTENANCE Final Result * Hepatitis C Screening (07/13/2016) [facility] Hepatitis C Screening abstracted [facility] Provider HEALTH MAINTENANCE Final Result from Last 3 Months or Most Recently Relevant to Health Maintenance Insurance MEDICARE [facility] Care Teams Ladies Locker Room Attendant Relationship Specialty Start Date End Date Jayesh Harris MD [address] [place] [address] PCP - General 01/13/24
--- OUTSIDE RECORDS SUMMARY | 2025-01-17 11:38 | XMS_ITS | Clinical Summary ---
Author Organization [facility] Address [address] [place] [address] Care Team Providers Care Stone Polisher Name Role Phone Pcp, No Primary Care [...] age to complete this topic Care Teams Stone Polisher Relationship Specialty Start Date End Date Pcp, No PCP - General General Medicine 07/16/20
--- OUTSIDE RECORDS SUMMARY | 2025-01-17 11:38 | XMS_ITS | Clinical Summary ---
Author Organization [facility] Address [address] [place] [address] Care Team Providers Care Jitterbug Operator Name Role Phone Oscar Hayden MD Primary Care Provider Allergies No known active allergies Medications Medication [...] this topic Medical Devices Implanted Type Area Rouge Sifter And Miller Device Identifier Shelf Expiration Date Model / Serial / Lot System Austen Ruiz 28mm 2.75mm Rapdx Everolimus Coronary - [id number] - [id number] Implanted:2018 at [facility] (Quantity not on file) [employer] [id number] / / Advance Directives For more information, please contact: [phone] Latest Code Status on File Code Status [...] way: discussion with patient . Care Teams Jitterbug Operator Relationship Specialty Start Date End Date Oscar Hayden MD [address] [place] [address] PCP - General Mortar Worker 02/24/19
== END 2025-01-17 09:52 | disposition home or self-care (01) ==
LOC: HO.HOSX 09:51
PROVIDERS: PCP Internal Medicine; Visit Provider Physician Assistant
DX: Z98.1 Arthrodesis status (principal)
CPT/HCPCS: 72110; 99212

== ENCOUNTER → 2025-01-17 10:32 | Outpatient (BNV) | payer MEDICARE, SELFPAY | PROVIDERS: PCP Internal Medicine; Visit Provider Radiology Neuroradiology | DX: M51.369 Other intervertebral disc degeneration, lumbar region without mention of lumbar back pain or lower extremity pain (principal) | CPT/HCPCS: 72110 ==